=== PATIENT | female | born 1930 | race Caucasian/White ===

== ENCOUNTER 2017-08-25 23:26 | Observation (INO) | payer OTHER ==
[~2017-08-25] VITALS: Ht 162.6 cm; Wt 77.2 kg
[~2017-08-25 23:26] MED LIST: ALBU90OI6 INH; ALBU90OI61; ALBU90OI61 INH; ALIS150T PO; ALLO300; ASPI81EC PO; ATOR40TA; AZOR PO; CARV3.125 PO; CARV6.25; CARV6.25 PO; CHOL10002; CLON.1 PO; CLON.2 PO; CYAN100 PO; CYAN500 PO; FENO145 PO; FLUSAL1005; FLUSAL1005 IH; FLUSAL2505 IH; HYDACE5325 PO; Humalog100 UNIT/1 SC; INSLI75/25 SC; INSLIS75I SUBQ; INSULANI SC; INSULANPEN SC; LEVSOD25 PO; LEVSOD50 PO; MAG 64 PO; MAGCHL64ER PO; NAC600 MG PO; OLME20-12. PO; OMEG1CAP30 PO; OMEP20ER PO; Omeprazole20 M1 PO; Percocet 5-3251 EACH PO; ROSU10TA PO; WARF2 PO; WARF5 PO; WARF6 PO; Zanaflex2 M1 PO
[2017-08-26 01:29] LABS: BASOPHILS ABSOLUTE AUTO 0.03 K/mm3 (0.00-0.23); BASOPHILS PERCENT AUTO 0 % (0-2); EOSINOPHILS ABSOLUTE AUTO 0.54 K/mm3 (0.00-0.68); EOSINOPHILS PERCENT AUTO 6 % (0-6); Hematocrit 33.7 % (33.0-51.0); Hemoglobin 11.1 g/dL (11.5-16.0); IMMATURE GRAN ABSOLUTE AUTO 0.06 K/mm3 (0.00-0.10); IMMATURE GRAN PERCENT AUTO 1 % (0-1); LYMPHOCYTES ABSOLUTE AUTO 2.32 K/mm3 (0.84-5.20); LYMPHOCYTES PERCENT AUTO 24 % (21-46); MONOCYTES ABSOLUTE AUTO 1.23 K/mm3 (0.16-1.47); MONOCYTES PERCENT AUTO 13 % (4-13); Mean Corpuscular HGB 30.6 pg (26.0-34.0); Mean Corpuscular HGB Conc 32.9 g/dL (31.5-36.5); Mean Corpuscular Volume 93 fL (80-100); Mean Platelet Volume 11.7 fL (9.1-12.4); NEUTROPHILS ABSOLUTE AUTO 5.52 K/mm3 (1.96-9.15); NEUTROPHILS PERCENT AUTO 57 % (41-73); Platelet Count 203 K/mm3 (150-400); RDW Coefficient Variation 12.8 % (11.7-14.2); RDW Standard Deviation 43.6 fL (35.1-46.3); Red Blood Cell Count 3.63 M/mm3 (3.80-5.20)
[2017-08-26 01:36] LABS: International Normalized Ratio 2.47; Prothrombin Time Results 26.4 Sec (9.7-11.5)
[2017-08-26 01:41] LABS: Albumin, Blood 3.3 g/dL (3.4-5.0); Albumin/Globulin Ratio 0.8 (0.8-1.8); Bilirubin, Total 0.3 mg/dL (0.1-1.0); Bun/Creatinine Ratio 21.6 (12.0-20.0); Calcium, Blood 8.7 mg/dL (8.5-10.1); Creatinine, Blood 1.67 mg/dL (0.40-1.00); Globulin, Blood 4.1 g/dL (2.2-4.0); Potassium, Blood 3.9 mmol/L (3.5-5.5); Total Protein, Blood 7.4 g/dL (6.4-8.2)
[2017-08-26] MEDS ORDERED: CLON.1 PO ×2 (03:09→03:10)
[2017-08-26] MEDS ORDERED: Advair Hfa 230-12 GM INH (03:14)
[2017-08-26] MEDS ORDERED: ATOR20 PO (03:19)
[2017-08-26] MEDS ORDERED: ISODIN20 PO (03:21)
[2017-08-26] MEDS ORDERED: AMLO5 PO (03:22)
[2017-08-26] MEDS ORDERED: OLME5TAB PO (03:24)
[2017-08-26] MEDS ORDERED: WARF4 PO (03:26)
[2017-08-26] MEDS ORDERED: FURO40 PO (03:27)
[2017-08-26] MEDS ORDERED: GAVILAX17 GM PO (03:33)
== END 2017-08-26 12:39 | disposition home or self-care (01) ==
LOC: ER 23:26 → PCU 23:27
PROVIDERS: Family Medicine; Physician Assistant
DX: T38.3X1A Poisoning by insulin and oral hypoglycemic [antidiabetic] drugs, accidental (unintentional), initial encounter (principal); E11.649 Type 2 diabetes mellitus with hypoglycemia without coma; Y92.9 Unspecified place or not applicable; I10 Essential (primary) hypertension; I48.91 Unspecified atrial fibrillation; I25.10 Atherosclerotic heart disease of native coronary artery without angina pectoris; K21.9 Gastro-esophageal reflux disease without esophagitis; J45.909 Unspecified asthma, uncomplicated; M19.90 Unspecified osteoarthritis, unspecified site; Z86.73 Personal history of transient ischemic attack (TIA), and cerebral infarction without residual deficits; Z95.1 Presence of aortocoronary bypass graft; Z98.1 Arthrodesis status; Z79.4 Long term (current) use of insulin; Z79.899 Other long term (current) drug therapy; Z88.8 Allergy status to other drugs, medicaments and biological substances; Z88.1 Allergy status to other antibiotic agents
CPT/HCPCS: 80053; 82947; 83036; 85025; 85610; 93005; 93010; 96361; 96374; 99285; G0378; J7042

== ENCOUNTER 2018-02-11 09:35 | Emergency (ER) | payer OTHER ==
[~2018-02-11] VITALS: Ht 162.6 cm; Wt 74.8 kg
[~2018-02-11 09:35] MED LIST changes: +AMLO5 PO; +ATOR20 PO; +Advair Hfa 230-12 GM INH; +FURO40 PO; +GAVILAX17 GM PO; +ISODIN20 PO; +OLME5TAB PO; +WARF4 PO
[2018-02-11 10:03] LABS: BASOPHILS ABSOLUTE AUTO 0.03 K/mm3 (0.00-0.23); BASOPHILS PERCENT AUTO 0 % (0-2); EOSINOPHILS ABSOLUTE AUTO 0.45 K/mm3 (0.00-0.68); EOSINOPHILS PERCENT AUTO 5 % (0-6); Hematocrit 33.3 % (33.0-51.0); Hemoglobin 11.2 g/dL (11.5-16.0); IMMATURE GRAN ABSOLUTE AUTO 0.03 K/mm3 (0.00-0.10); IMMATURE GRAN PERCENT AUTO 0 % (0-1); LYMPHOCYTES ABSOLUTE AUTO 1.96 K/mm3 (0.84-5.20); LYMPHOCYTES PERCENT AUTO 22 % (21-46); MONOCYTES PERCENT AUTO 10 % (4-13); Mean Corpuscular HGB 30.7 pg (26.0-34.0); Mean Corpuscular HGB Conc 33.6 g/dL (31.5-36.5); Mean Corpuscular Volume 91 fL (80-100); Mean Platelet Volume 11.8 fL (9.1-12.4); NEUTROPHILS ABSOLUTE AUTO 5.67 K/mm3 (1.96-9.15); NEUTROPHILS PERCENT AUTO 63 % (41-73); Platelet Count 187 K/mm3 (150-400); RDW Coefficient Variation 12.7 % (11.7-14.2); RDW Standard Deviation 42.7 fL (35.1-46.3); Red Blood Cell Count 3.65 M/mm3 (3.80-5.20); White Blood Cell Count 9.04 K/mm3 (4.00-11.30)
[2018-02-11 10:28] LABS: Alanine Aminotransfer (ALT/SGP 26 U/L (12-78); Albumin, Blood 3.7 g/dL (3.4-5.0); Albumin/Globulin Ratio 1.1 (0.8-1.8); Alk Phos 56 U/L (50-136); Anion Gap 9 mmol/L (6-16); Aspartate Aminotrans (AST/SGOT 26 U/L (12-37); Bilirubin, Total 0.7 mg/dL (0.1-1.0); Blood Urea Nitrogen 38 mg/dL (8-24); Bun/Creatinine Ratio 22.8 (12.0-20.0); CO2, Blood 24 mmol/L (21-32); Calcium, Blood 7.4 mg/dL (8.5-10.1); Chloride, Blood 106 mmol/L (98-108); Creatinine, Blood 1.67 mg/dL (0.40-1.00); Globulin, Blood 3.5 g/dL (2.2-4.0); Glomerular Filtration Rate 31 (60-); Glucose, Blood 122 mg/dL (70-99); Potassium, Blood 4.1 mmol/L (3.5-5.5); Sodium, Blood 139 mmol/L (136-145); Total Protein, Blood 7.2 g/dL (6.4-8.2); Troponin I <0.015 ng/mL (0.000-0.040)
== END 2018-02-11 13:49 | disposition home or self-care (01) ==
LOC: ER 09:35
PROVIDERS: Emergency Medicine
DX: R07.9 Chest pain, unspecified (principal); R25.1 Tremor, unspecified; I10 Essential (primary) hypertension; E11.9 Type 2 diabetes mellitus without complications; I48.91 Unspecified atrial fibrillation; K21.9 Gastro-esophageal reflux disease without esophagitis; D64.9 Anemia, unspecified; Z86.73 Personal history of transient ischemic attack (TIA), and cerebral infarction without residual deficits; Z91.09 Other allergy status, other than to drugs and biological substances; Z88.8 Allergy status to other drugs, medicaments and biological substances; Z79.4 Long term (current) use of insulin; Z79.899 Other long term (current) drug therapy; Z79.01 Long term (current) use of anticoagulants
CPT/HCPCS: 36415; 71046; 80053; 83690; 84484; 85025; 93005; 93010; 99285-25

== ENCOUNTER → 2018-07-22 | Outpatient (CLI) | payer OTHER | END | disposition home or self-care (01) | LOC: LAB EV 11:03 | DX: E87.5 Hyperkalemia (principal) | CPT/HCPCS: 84132 ==

== ENCOUNTER → 2018-11-24 | Outpatient (CLI) | payer OTHER ==
[2018-11-24 15:58] LABS: BASOPHILS ABSOLUTE AUTO 0.03 K/mm3 (0.00-0.23); BASOPHILS PERCENT AUTO 0 % (0-2); EOSINOPHILS ABSOLUTE AUTO 0.04 K/mm3 (0.00-0.68); EOSINOPHILS PERCENT AUTO 0 % (0-6); Hematocrit 32.8 % (33.0-51.0); Hemoglobin 11.3 g/dL (11.5-16.0); IMMATURE GRAN ABSOLUTE AUTO 0.11 K/mm3 (0.00-0.10); IMMATURE GRAN PERCENT AUTO 1 % (0-1); LYMPHOCYTES ABSOLUTE AUTO 1.81 K/mm3 (0.84-5.20); LYMPHOCYTES PERCENT AUTO 14 % (21-46); MONOCYTES ABSOLUTE AUTO 1.76 K/mm3 (0.16-1.47); MONOCYTES PERCENT AUTO 14 % (4-13); Mean Corpuscular HGB 29.4 pg (26.0-34.0); Mean Corpuscular HGB Conc 34.5 g/dL (31.5-36.5); Mean Corpuscular Volume 85 fL (80-100); Mean Platelet Volume 12.6 fL (9.1-12.4); NEUTROPHILS ABSOLUTE AUTO 8.85 K/mm3 (1.96-9.15); NEUTROPHILS PERCENT AUTO 70 % (41-73); Platelet Count 276 K/mm3 (150-400); RDW Coefficient Variation 12.8 % (11.7-14.2); Red Blood Cell Count 3.85 M/mm3 (3.80-5.20)
[2018-11-24 16:14] LABS: Bun/Creatinine Ratio 27.3 (12.0-20.0); Calcium, Blood 8.5 mg/dL (8.5-10.1); Creatinine, Blood 2.67 mg/dL (0.40-1.00); Potassium, Blood 3.7 mmol/L (3.5-5.5); Uric Acid, Blood 15.7 mg/dL (2.6-6.0)
== END ==
LOC: LAB SHORT 15:46 → LAB EV 15:46
PROVIDERS: Emergency Medicine
DX: M79.675 Pain in left toe(s) (principal)
CPT/HCPCS: 80048; 84550; 85025

== ENCOUNTER 2019-03-17 12:49 | Inpatient (IN) | payer OTHER ==
[~2019-03-17] VITALS: Ht 165.1 cm; Wt 72.4 kg
[2019-03-17 13:17] LABS: BASOPHILS ABSOLUTE AUTO 0.03 K/mm3 (0.00-0.23); BASOPHILS PERCENT AUTO 0 % (0-2); EOSINOPHILS ABSOLUTE AUTO 0.01 K/mm3 (0.00-0.68); EOSINOPHILS PERCENT AUTO 0 % (0-6); Hematocrit 46.1 % (33.0-51.0); Hemoglobin 14.8 g/dL (11.5-16.0); IMMATURE GRAN ABSOLUTE AUTO 0.28 K/mm3 (0.00-0.10); IMMATURE GRAN PERCENT AUTO 1 % (0-1); LYMPHOCYTES PERCENT AUTO 4 % (21-46); MONOCYTES ABSOLUTE AUTO 1.77 K/mm3 (0.16-1.47); MONOCYTES PERCENT AUTO 7 % (4-13); Mean Corpuscular HGB 27.3 pg (26.0-34.0); Mean Corpuscular HGB Conc 32.1 g/dL (31.5-36.5); Mean Corpuscular Volume 85 fL (80-100); NEUTROPHILS ABSOLUTE AUTO 21.24 K/mm3 (1.96-9.15); NEUTROPHILS PERCENT AUTO 87 % (41-73); Platelet Count 198 K/mm3 (150-400); RDW Coefficient Variation 14.4 % (11.7-14.2); RDW Standard Deviation 43.8 fL (35.1-46.3); Red Blood Cell Count 5.42 M/mm3 (3.80-5.20); White Blood Cell Count 24.33 K/mm3 (4.00-11.30)
[2019-03-17 13:26] LABS: International Normalized Ratio 1.52; Prothrombin Time Results 15.5 Sec (9.7-11.5)
[2019-03-17 13:41] LABS: Albumin, Blood 3.1 g/dL (3.4-5.0); Albumin/Globulin Ratio 0.9 (0.8-1.8); Bilirubin, Total 1.6 mg/dL (0.1-1.0); Bun/Creatinine Ratio 33.9 (12.0-20.0); Calcium, Blood 8.4 mg/dL (8.5-10.1); Creatine Kinase MB 1.8 ng/mL (0.0-3.6); Creatine Kinase MB Index 1.1 (0.0-4.0); Creatinine, Blood 1.86 mg/dL (0.40-1.00); Globulin, Blood 3.3 g/dL (2.2-4.0); Total Protein, Blood 6.4 g/dL (6.4-8.2); Troponin I 0.085 ng/mL (0.000-0.040)
[2019-03-17 14:03] LABS: Source, Urine Catheter
[2019-03-17 14:15] LABS: Bilirubin, Urine Neg (Neg); Blood, Urine 3+ (Neg); Glucose Qualitative, Urine 4+ (Neg); Ketones, Urine 1+ (Neg); Leukocyte Esterase, Urine 3+ (Neg); Nitrite, Urine Neg (Neg); Protein, Urine 4+ (Neg); Specific Gravity, Urine 1.015 (1.003-1.022); Urobilinogen, Urine NORM (Normal)
[2019-03-17 14:22] LABS: Appearance, Urine Hazy (Clear); Color, Urine Yellow (P-Yellow)
[2019-03-17 14:23] LABS: Bacteria Many /hpf; Squamous Epithelial Cells Few /hpf (Few); White Blood Cells, Urine TNTC /hpf (0-5)
--- NOTE | 2019-03-17 16:31 | NUR ---
PT ARRIVAL PT ARRIVED ON UNIT VIA GURNEY. PT WAS ADMITTED FOR ACUTE CVA. PT IS NONVERBAL AT THIS TIME AND RIGHT SIDE IS FLACCID. PT IS ABLE TO OPEN EYES TO VERBAL STIMULI BUT UNABLE TO TRACK OR FOLLOW DIRECTIONS. PT HAS LEFT FACIAL DROOP NOTED, PT'S LEFT PUPIL IS PINPOINT AND FIXED, RIGHT PUPILE IS PIN POINT WITH BRISK RESPONSE TO LIGHT. PT ARRIVED ON LABATOLOL GTT RUNNING AT 0.5 MG/HR, PT'S VS STABLE AT THIS TIME (SEE VS CHARTING). ROPER IN PLACE, DRAINING CLOUDY, MUCOUSY, FOUL SMELLING URINE TO GRAVITY. WILL CONTINUE TO MONITOR.
--- NOTE | 2019-03-17 18:50 | NUR ---
SHIFT SUMMARY. NO ACUTE CHANGES NOTED THIS SHIFT. PT IS STILL ON THE LABATOLOL GTT. PT IS IN AFIB IN THE 80'S PER ACCOUNTS RECEIVABLE COORDINATOR. PT'S SBP IS IN THE 150'S. PER PROVIDER HE WANTS TO KEEP SBP BELOW 180 AND ABOVE 120. PT HAS CLONIDINE PATCH TO LEFT UPPER ARM. PT'S SON AND DAUGHTER IN LAW ARE DRIVING FROM [place] IN THE AM. THIS IS THE PT'S ONLY FAMILY. PT'S NEIGHBORS CAME IN TO VISIT PT ONCE SHE WAS ADMITTED. CALL LIGHT IN REACH, BED IS LOCKED AND LOW WILL CONTINUE TO MONITOR UNTIL REPORT IS GIVEN TO ONCOMING RN.
[2019-03-18 04:09] LABS: BASOPHILS ABSOLUTE AUTO 0.03 K/mm3 (0.00-0.23); BASOPHILS PERCENT AUTO 0 % (0-2); EOSINOPHILS PERCENT AUTO 0 % (0-6); Hematocrit 41.1 % (33.0-51.0); IMMATURE GRAN ABSOLUTE AUTO 0.18 K/mm3 (0.00-0.10); IMMATURE GRAN PERCENT AUTO 1 % (0-1); LYMPHOCYTES PERCENT AUTO 4 % (21-46); MONOCYTES ABSOLUTE AUTO 1.96 K/mm3 (0.16-1.47); MONOCYTES PERCENT AUTO 9 % (4-13); Mean Corpuscular HGB 27.1 pg (26.0-34.0); Mean Corpuscular HGB Conc 31.6 g/dL (31.5-36.5); Mean Corpuscular Volume 86 fL (80-100); Mean Platelet Volume 12.6 fL (9.1-12.4); NEUTROPHILS ABSOLUTE AUTO 19.23 K/mm3 (1.96-9.15); NEUTROPHILS PERCENT AUTO 87 % (41-73); Platelet Count 162 K/mm3 (150-400); RDW Coefficient Variation 14.5 % (11.7-14.2); RDW Standard Deviation 45.2 fL (35.1-46.3)
[2019-03-18 04:30] LABS: Albumin, Blood 2.3 g/dL (3.4-5.0); Albumin/Globulin Ratio 0.8 (0.8-1.8); Bilirubin, Total 0.8 mg/dL (0.1-1.0); Bun/Creatinine Ratio 32.7 (12.0-20.0); Calcium, Blood 7.4 mg/dL (8.5-10.1); Creatinine, Blood 2.08 mg/dL (0.40-1.00); Globulin, Blood 2.9 g/dL (2.2-4.0); Potassium, Blood 4.3 mmol/L (3.5-5.5); Total Protein, Blood 5.2 g/dL (6.4-8.2); Troponin I 0.18 ng/mL (0.000-0.040)
--- NOTE | 2019-03-18 06:33 | NUR ---
ASSUMED CARE APPROXIMATELY 1900 FROM HIPOLITO IBANEZ; PT IS NONVERBAL AT PRESENT, HOWEVER PROGRESSIVELY BECAME MORE RESPONSIVE THROUGH THE NIGHT; PT OPENS EYES AND ATTEMPTS TO NOD HER HEAD, OCCASIONALY MOANS; RIGHT SIDED PARALYSIS; SLIGHT LEFT HAND FLARER; AND AT TIMES MOVED GREAT TOE ON LEFT SIDE; PT IS ON RA W/ O2 SATS IN THE 90'S; V/S STABLE W/ SYSTOLIC RANGING FROM 120'S TO 140'S; PROVIDED CALLED 03/17/19 @2004 AND WAS UPDATED ON PT CONDITION; ORDERS GIVEN TO ADMINISTER 20 UNITS OF INSULIN AND SLIDING SCALE CHANGED TO MED. PT'S SON AND [id number] PHONED FOR UPDATE AND STATED THEY WOULD BE DRIVING DOWN TO SEE HER; PT HAD HEAD CT AT 0600; BED IN LOWEST POSITION; BED ALARM ON; WILL CONTINUE TO MONITOR AND ASSESS UNTIL HANDOFF TO DAY SHIFT RN.
--- NOTE | 2019-03-18 07:38 | NUR ---
AM NOTE. ASSUMED CARE OF PT APROX 0700, PT WAS ADMITTED FOR ACUTE CVA. PT APPEARS MORE ALERT THAN YESTERDAY, PT IS ABLE TO OPEN HER EYES TO VERBAL STIMULI. PT WAS ABLE TO TRACK AND FOLLOW WITH HER EYES THIS MORNING. PT HAS BEEN ATTEMPTING TO SPEAK BUT WORDS ARE NONSENSICAL AT THIS TIME. PT ATTEMPTS TO HELP COVER HERSELF WITH HER LEFT ARM WHEN BLANKETS ARE REMOVED FOR CARE. PT HAS VERY MINIMAL MOVMENT WITH THE LEFT LEG. PT'S VS STABLE AT THIS TIME. PT IS STILL ON LABATALOL GTT AT 0.5MG/HR. L/S CLEAR IN THE UPPER LOBES AND COARSE CRACKLES NOTED IN THE LLL. PT IS ON RA WITH O2 SATS >92%. EDEMA IS STILL PRESENT TO THE PT'S R ARM AND HAND. ROPER IS PATENT AND DRAINING CLOUDY, YELLOW, MILKY URINE TO GRAVITY. PT HAD SMALL SMEAR OF BM THIS AM. CALL LIGHT IN REACH, WILL CONTINUE TO MONITOR.
--- NOTE | 2019-03-18 11:30 | NUR ---
PT UPDATE... AT 1053 PT HAD WITNESSED SEIZURE THAT LASTED 1 MINUTE AND 5 SECONDS. THIS RN WAS PROVIDING CARE AND ASSESSING PT'S NEURO FUNCTION WHEN PT STARTING SEIZING. PRIOR TO SEIZURE PT WAS ABLE TO OPEN HER EYES, AND SQUEEZE THIS RN'S HAND PROPERLY IN RESPONSE TO SIMPLE YES NO QUESTIONS. PROVIDER WAS CALLED AND NOTIFIED OF EVENT AND ORDERS OBTAINED. WILL CONTINUE TO MONITOR.
--- NOTE | 2019-03-18 15:35 | NUR ---
PT UPDATE.... PT'S SON FROM OUT OF STATE. PT WOKE UP AND STARTED SMILING AT HER SON AND DAUGHTER IN LAW, PT WAS ABLE TO SQUEEZE HER SON'S HAND. PT'S VS STABLE AT 140/62 WITH HR OF 108 IN AFIB. LABATALOL HAS BEEN OFF SINCE 1130. PT HAS BEEN TURNED Q 2 HOURS, CATH CARE/DILEEP CARE PROVIDED. PALLIATVE CARE CONSULT WAS PLACED. WILL CONTINUE TO MONITOR
--- NOTE | 2019-03-18 18:13 | NUR ---
Clinical Visit: Called to room by nurse. Tiffani reports that family is having questions regarding comfort care and hospice. Reviewed each of these with son and daughter in law at bedside. Questions answered. Pt appears very comfortable. She has had some ativan for seizure. Will follow up with family and pt tomorrow. They are planning on staying in [place] until Friday to hopefully have things in place for pt. Will need placement.
--- NOTE | 2019-03-19 02:37 | NUR ---
ASSUMED CARE APPROXIMATELY 1900 FROM MARCELLE RN; FAMILY AT BEDSIDE AT BEGINING OF SHIFT; PT IS ATTEMPTING TO FOLLOW VERBAL COMMANDS, HOWEVER VERY LIMITED; Q2 HR TURNS PROVIDED; CATH CARE AND ORAL CARE PROVIDED; PT ANSWERED YES/NO QUESTIONS AND OPENED MOUTH DIRECTED; SCD'S IN PLACE; PT DENIES PAIN AT THIS TIME; PT SLEPT MUCH OF THE NIGHT IN BETWEEN INTERVENTIONS; CALL LIGHT W/IN REACH, BED IN LOWEST POSITION; BED ALARM ON; WILL CONTINUE TO MONITOR AND ASSESS UNTIL HANDOFF TO DAY SHIFT RN.
[2019-03-19 04:05] LABS: BASOPHILS ABSOLUTE AUTO 0.01 K/mm3 (0.00-0.23); BASOPHILS PERCENT AUTO 0 % (0-2); EOSINOPHILS PERCENT AUTO 0 % (0-6); Hematocrit 41.7 % (33.0-51.0); Hemoglobin 13.1 g/dL (11.5-16.0); IMMATURE GRAN ABSOLUTE AUTO 0.12 K/mm3 (0.00-0.10); IMMATURE GRAN PERCENT AUTO 1 % (0-1); LYMPHOCYTES ABSOLUTE AUTO 0.53 K/mm3 (0.84-5.20); LYMPHOCYTES PERCENT AUTO 3 % (21-46); MONOCYTES ABSOLUTE AUTO 0.86 K/mm3 (0.16-1.47); MONOCYTES PERCENT AUTO 5 % (4-13); Mean Corpuscular HGB 27.1 pg (26.0-34.0); Mean Corpuscular HGB Conc 31.4 g/dL (31.5-36.5); Mean Corpuscular Volume 86 fL (80-100); Mean Platelet Volume 11.6 fL (9.1-12.4); NEUTROPHILS ABSOLUTE AUTO 14.36 K/mm3 (1.96-9.15); NEUTROPHILS PERCENT AUTO 90 % (41-73); Platelet Count 129 K/mm3 (150-400); RDW Coefficient Variation 14.6 % (11.7-14.2); Red Blood Cell Count 4.83 M/mm3 (3.80-5.20); White Blood Cell Count 15.88 K/mm3 (4.00-11.30)
[2019-03-19 04:22] LABS: Albumin, Blood 2.2 g/dL (3.4-5.0); Anion Gap 10 mmol/L (6-16); Blood Urea Nitrogen 67 mg/dL (8-24); Bun/Creatinine Ratio 36.4 (12.0-20.0); CO2, Blood 22 mmol/L (21-32); Calcium, Blood 6.9 mg/dL (8.5-10.1); Chloride, Blood 112 mmol/L (98-108); Creatinine, Blood 1.84 mg/dL (0.40-1.00); Glomerular Filtration Rate 27 (60-); Glucose, Blood 203 mg/dL (70-99); Phosphorus, Blood 3.9 mg/dL (2.5-4.9); Sodium, Blood 144 mmol/L (136-145)
--- NOTE | 2019-03-19 07:51 | NUR ---
AM NOTE. ASSUMED CARE OF PT APROX 0700. PT IS A&Ox4 AND ON BEDREST. PT IS ABLE TO RESPOND TO SIMPLE QUESTIONS, PT WAS UNABLE TO STATE HER BIRTHDAY, THE DATE/YEAR, OR WHO THE PRESIDENT WAS. PT STATED SHE REMEMBERED HER SON AND DAUGHTER IN LAW WAS HERE. PT WAS ABLE TO LIFT HER LEFT LEG AND HER RIGHT LEG ON COMMAND, PT WAS ABLE TO LIFT HER LEFT ARM AND EMBLEM DRAWER IN HER FINGERS, PT WAS UNABLE TO MOVE RIGHT ARM/HAND. PT WAS ABLE TO SIT UP IN THE BED AND LEAN FORWARD WITH HELP FROM THIS RN. PUPILS ARE SMALL AT 2MM AND RESPONSIVE TO LIGHT. PT WAS ABLE TO SMILE WHEN ASKED, WHEN PT WAS ASKED TO STICK OUT HER TONGUE PT SMILED INSTEAD. PT IS IN AFIB IN THE 70'S-80'S. RIGHT HAND/ARM STILL HAS SOME NONPITTING EDEMA AND IS ELEVATED ON PILLOWS. L/S DIM AND CLEAR T/O EXCEPT IN THE LLL WHERE SLIGHT COARSENESS IS HEARD. PT IS ON RA WITH O2 SATS >92%, BT PRESENT AND HYPOACTIVE, ABD IS SOFT AND NONTENDER TO PALP. PT IS NPO AND REQUEST FOR SPEECH THERAPIST WILL BE PLACED. CALL LIGHT IN REACH, BED IS LOCKED AND LOW WILL CONTINUE TO MONITOR.
--- NOTE | 2019-03-19 18:40 | NUR ---
SHIFT SUMMARY. NO ACUTE NEGATIVE CHANGES NOTED THIS SHIFT. PT IS ABLE TO TALK AND RESPOND TO SIMPLE QUESTIONS. PT IS ABLE TO MOVE HER RIGHT LEG AND SLIGHTLY MOVE HER RIGHT ARM. BEDSIDE SWALLOW STUDY WAS DONE BY THIS RN, PT DID NOT SHOW SIGNS/SYMPTOMS OF ASPIRATION. PT AND FAMILY EDUCATED ON SWALLOW PRECAUTIONS. PT'S VS HAVE BEEN STABLE. PT DENIES ANY CHEST PAIN/PRESSURE, N/V/D OR HEADACHE. CALL LIGHT IN REACH, BED IS LOCKED AND LOW WILL CONTINUE TO MONITOR UNTIL REPORT IS GIVEN TO ONCOMING RN.
--- NOTE | 2019-03-20 05:49 | NUR ---
PT HAD NO ACUTE CHANGES T/O NIGHT; VSS. PT IS ALERT, COOPERATIVE, NO CHANGES IN NEURO STATUS. SPEECH CLEAR, SLURRED AT TIMES. PT DOES HAVE OCC WORD SALAD AND DIFFICULTY FINDING WORDING. PT SWALLOWING W/O DIFFICULTY, HOB ELEVATED. JACQUELIN PRIETO, IVF CONT PER ORDERS. PT REPOSITIONED FREQ T/O NIGHT. WILL CONT TO MONITOR UNTIL REP GIVEN TO ONCOMING RN.
[2019-03-20 11:36] LABS: International Normalized Ratio 2.12
--- NOTE | 2019-03-20 14:08 | NUR ---
ASSUMED CARE REPORT FROM HIPOLITO FRANCOIS. PATIENT IN BED WITH HEAD AT 45 DEGREE ANGLE. FAMILY AT BEDSIDE. DENIES PAIN AT THIS TIME. NS 75 ML/HR
--- NOTE | 2019-03-20 15:00 | NUR ---
ASSUMED CARE OF PATIENT. REPORT RECIEVED FROM JOSIANE MCMILLAN. PT IS RESTING COMFORTABLY IN BED VISITNG WITH HER SON AND DAUGHTER-IN -LAW. PATIENT HAS COMPLETED AN ADVANCED DIRECTIVE, COPY MADE AND PLACED IN THE CHART. SON AND [id number] STATED THEY TOURED THE CUSTODIAL FACILITIES TODAY AND THEY WOULD PREFER THE PATIENT GO TO [facility], I REASSURED THE FAMILY I WOULD PASS ALONG THE MESSAGE SO CARE MANAGEMENT KNOWS. PT AND FMAIY DENY FURTHER NEEDS. CALL LIGHT IN REACH. WILL CONTINUE TO MONITOR.
--- NOTE | 2019-03-20 17:30 | NUR ---
PO MEDS GIVEN. PT IS ABLE TO EAT DINNER WITHOUT ASSISTANCE. VSS. PT AND FAMILY DENY OTHER NEEDS AT THIS TIME. CALL LIGHT IN REACH, WILL CONTINUE TO MONITOR.
--- NOTE | 2019-03-20 20:24 | NUR ---
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
[2019-03-21 04:01] LABS: BASOPHILS ABSOLUTE AUTO 0.01 K/mm3 (0.00-0.23); BASOPHILS PERCENT AUTO 0 % (0-2); EOSINOPHILS PERCENT AUTO 0 % (0-6); Hematocrit 43.5 % (33.0-51.0); Hemoglobin 13.8 g/dL (11.5-16.0); IMMATURE GRAN ABSOLUTE AUTO 0.11 K/mm3 (0.00-0.10); IMMATURE GRAN PERCENT AUTO 1 % (0-1); LYMPHOCYTES ABSOLUTE AUTO 0.74 K/mm3 (0.84-5.20); LYMPHOCYTES PERCENT AUTO 5 % (21-46); MONOCYTES ABSOLUTE AUTO 0.86 K/mm3 (0.16-1.47); MONOCYTES PERCENT AUTO 6 % (4-13); Mean Corpuscular HGB 27.4 pg (26.0-34.0); Mean Corpuscular HGB Conc 31.7 g/dL (31.5-36.5); Mean Corpuscular Volume 87 fL (80-100); Mean Platelet Volume 12.1 fL (9.1-12.4); NEUTROPHILS ABSOLUTE AUTO 13.46 K/mm3 (1.96-9.15); NEUTROPHILS PERCENT AUTO 89 % (41-73); Platelet Count 149 K/mm3 (150-400); RDW Coefficient Variation 14.6 % (11.7-14.2); RDW Standard Deviation 46.4 fL (35.1-46.3); Red Blood Cell Count 5.03 M/mm3 (3.80-5.20); White Blood Cell Count 15.18 K/mm3 (4.00-11.30)
[2019-03-21 04:15] LABS: International Normalized Ratio 2.32; Prothrombin Time Results 22.8 Sec (9.7-11.5)
[2019-03-21 04:21] LABS: Calcium, Blood 6.5 mg/dL (8.5-10.1); Creatinine, Blood 1.54 mg/dL (0.40-1.00); Potassium, Blood 4.4 mmol/L (3.5-5.5)
--- NOTE | 2019-03-21 06:11 | NUR ---
SHIFT SUMMARY: PATIENT UP TO BSC WITH MAX ASSIST AT BEGINNING OF SHIFT, X1 BM. ABRASION ON COCCYX AND NEAR RECTUM. S.S. CONSULT ORDERED-PATIENT FAMILY WOULD LIKE FOR HER TO GO TO [facility] FOR REHAB. PATIENT VSS, CALL LIGHT WITHIN REACH, BED LOW AND LOCKED WITH EXIT ALARM ON.
--- NOTE | 2019-03-21 18:03 | NUR ---
SHIFT SUMMARY PT RESTING IN BED THE MAJORITY OF THE DAY. UP IN CHAIR FOR SEVERAL HOURS THIS AM. PT UP TO BEDSIDE COMMODE, BM X1. ALERT AND ORIENTED TO SELF, PLACE, AND FAMILY. PT FOLLOWING COMMANDS APPROPRIATELY AT TIMES, PT NOT ALWAYS ABLE TO FOLLOW COMMANDS. PT NOTED TO HAVE RECEPTIVE AND EXPRESSIVE APHASIA. RIGHT ARM WEAKNESS NOTED, BUT ABLE TO MOVE ARM INDEPENDENTLY AT TIMES. RIGHT LEG WEAKER THAN LEFT LEG, BUT PT TRANSFERED FROM COMMODE BACK TO BED WITH 1 PERSON ASSIST AND GAIT BELT. DENIES PAIN THROUGHOUT THE DAY. LUNG SOUNDS CLEAR, DIMINISHED BASES. AFIB RATE 60s-70s. FAMILY AT BEDSIDE THROUGHOUT THE DAY.
[2019-03-22 03:58] LABS: BASOPHILS ABSOLUTE AUTO 0.01 K/mm3 (0.00-0.23); BASOPHILS PERCENT AUTO 0 % (0-2); EOSINOPHILS ABSOLUTE AUTO 0.04 K/mm3 (0.00-0.68); EOSINOPHILS PERCENT AUTO 0 % (0-6); Hematocrit 43.9 % (33.0-51.0); Hemoglobin 13.9 g/dL (11.5-16.0); IMMATURE GRAN PERCENT AUTO 1 % (0-1); LYMPHOCYTES ABSOLUTE AUTO 0.97 K/mm3 (0.84-5.20); LYMPHOCYTES PERCENT AUTO 7 % (21-46); MONOCYTES ABSOLUTE AUTO 0.73 K/mm3 (0.16-1.47); MONOCYTES PERCENT AUTO 5 % (4-13); Mean Corpuscular HGB 26.7 pg (26.0-34.0); Mean Corpuscular HGB Conc 31.7 g/dL (31.5-36.5); Mean Platelet Volume 12.3 fL (9.1-12.4); NEUTROPHILS ABSOLUTE AUTO 11.74 K/mm3 (1.96-9.15); NEUTROPHILS PERCENT AUTO 86 % (41-73); Platelet Count 102 K/mm3 (150-400); RDW Coefficient Variation 14.6 % (11.7-14.2); RDW Standard Deviation 44.5 fL (35.1-46.3); White Blood Cell Count 13.59 K/mm3 (4.00-11.30)
[2019-03-22 04:03] LABS: International Normalized Ratio 2.24; Prothrombin Time Results 22.1 Sec (9.7-11.5)
[2019-03-22 04:04] LABS: Bun/Creatinine Ratio 38.7 (12.0-20.0); Calcium, Blood 6.3 mg/dL (8.5-10.1); Creatinine, Blood 1.24 mg/dL (0.40-1.00)
[2019-03-22 04:08] LABS: Mean Corpuscular Volume 84 fL (80-100)
--- NOTE | 2019-03-22 06:29 | NUR ---
SHIFT SUMMARY PT A&O TO SELF AND PLACE, FOLLOWING INSTRUCTIONS. PT W/ R-SIDED DEFICIT, ABLE TO LIFT R ARM AND HELP W/ REPOSITIONING IN BED. MONITOR SHOWS AFIB, HR 60-80. BP ELEVATED, OTHERWISE VSS. SPO2 > 92% ON RA. ROPER CATH CONTINUES TO DRAIN CLOUDY YELLOW URINE. PT SLEEPING MAJORITY OF SHIFT. WILL CONTINUE TO MONITOR AND PROVIDE CARE UNTIL REPORT OFF TO DAY SHIFT RN.
--- NOTE | 2019-03-22 15:41 | NUR ---
DISCHARGE NOTE PT STABLE FOR DISCHARGE TO [facility]. IV REMOVED. DISCHARGE INSTRUCTIONS SENT WITH PT TO FACILITY. REPORT CALLED TO NURSE AT [facility]. PT DISCHARGED VIA WHEELCHAIR VIA TRANSPORT.
[2019-03-22] MEDS ORDERED: Aspir 8181 MG PO (16:38)
== END 2019-03-22 15:44 | DRG 65 ==
LOC: ER 12:49 → PCU 14:46
PROVIDERS: Emergency Medicine; Internal Medicine Endocrinology, Diabetes & Metabolism; Pharmacist; ADMIT Family Medicine
DX: I63.512 Cerebral infarction due to unspecified occlusion or stenosis of left middle cerebral artery (principal); N18.4 Chronic kidney disease, stage 4 (severe); G81.91 Hemiplegia, unspecified affecting right dominant side; N39.0 Urinary tract infection, site not specified; Z79.01 Long term (current) use of anticoagulants; Z79.4 Long term (current) use of insulin; Z86.73 Personal history of transient ischemic attack (TIA), and cerebral infarction without residual deficits; I48.2 Chronic atrial fibrillation; K21.9 Gastro-esophageal reflux disease without esophagitis; I25.10 Atherosclerotic heart disease of native coronary artery without angina pectoris; Z95.1 Presence of aortocoronary bypass graft; E11.40 Type 2 diabetes mellitus with diabetic neuropathy, unspecified; E78.5 Hyperlipidemia, unspecified; E03.9 Hypothyroidism, unspecified; E11.22 Type 2 diabetes mellitus with diabetic chronic kidney disease; I12.9 Hypertensive chronic kidney disease with stage 1 through stage 4 chronic kidney disease, or unspecified chronic kidney disease; M81.0 Age-related osteoporosis without current pathological fracture; J44.9 Chronic obstructive pulmonary disease, unspecified; R47.01 Aphasia; B96.20 Unspecified Escherichia coli [E. coli] as the cause of diseases classified elsewhere; E11.65 Type 2 diabetes mellitus with hyperglycemia; I65.23 Occlusion and stenosis of bilateral carotid arteries; I27.20 Pulmonary hypertension, unspecified; I07.1 Rheumatic tricuspid insufficiency
CPT/HCPCS: 36415; 51702; 70450; 80048; 80053; 80069; 81001; 82550; 82553; 82947; 83880; 84484; 85025; 85610; 85730; 87077; 87086; 87186; 92610; 93005; 93010; 93880; 96361-59; 96365-59; 96376-59; 97110; 97112; 97116; 97162; 97167; 97530; 99285-25; C9113; J0696; J1650; J1815; J2060; J7030; J7060; Q3014

== ENCOUNTER 2019-04-16 09:44 | Emergency (ER) | payer OTHER ==
[~2019-04-16] VITALS: Ht 162.6 cm; Wt 83.9 kg
[~2019-04-16 09:44] MED LIST changes: +Aspir 8181 MG PO
[2019-04-16] MEDS ORDERED: INSULANPEN SC (10:01)
[2019-04-16] MEDS ORDERED: Humalog100 UNIT/1 SC (10:02)
[2019-04-16] MEDS ORDERED: OMEPRAZOLE20 MG PO (10:03)
[2019-04-16] MEDS ORDERED: Isosorbide Mono30 MG PO (10:03)
[2019-04-16] MEDS ORDERED: ASPI81CH PO (10:03)
[2019-04-16] MEDS ORDERED: ATOR20 PO (10:03)
[2019-04-16] MEDS ORDERED: Oyster Shell C500 MG (10:04)
[2019-04-16] MEDS ORDERED: Magnesium27 MG (10:04)
[2019-04-16] MEDS ORDERED: Synthroid50 MCG PO (10:05)
[2019-04-16] MEDS ORDERED: CYAN500 PO (10:05)
[2019-04-16] MEDS ORDERED: Coumadin4 MG PO (10:06)
[2019-04-16 10:07] LABS: BASOPHILS ABSOLUTE AUTO 0.03 K/mm3 (0.00-0.23); BASOPHILS PERCENT AUTO 0 % (0-2); EOSINOPHILS ABSOLUTE AUTO 0.21 K/mm3 (0.00-0.68); EOSINOPHILS PERCENT AUTO 2 % (0-6); Hematocrit 34.9 % (33.0-51.0); Hemoglobin 10.9 g/dL (11.5-16.0); IMMATURE GRAN ABSOLUTE AUTO 0.07 K/mm3 (0.00-0.10); IMMATURE GRAN PERCENT AUTO 1 % (0-1); LYMPHOCYTES ABSOLUTE AUTO 0.97 K/mm3 (0.84-5.20); LYMPHOCYTES PERCENT AUTO 8 % (21-46); MONOCYTES ABSOLUTE AUTO 1.02 K/mm3 (0.16-1.47); MONOCYTES PERCENT AUTO 9 % (4-13); Mean Corpuscular HGB Conc 31.2 g/dL (31.5-36.5); Mean Corpuscular Volume 87 fL (80-100); Mean Platelet Volume 11.7 fL (9.1-12.4); NEUTROPHILS ABSOLUTE AUTO 9.28 K/mm3 (1.96-9.15); NEUTROPHILS PERCENT AUTO 80 % (41-73); Platelet Count 201 K/mm3 (150-400); RDW Coefficient Variation 16.3 % (11.7-14.2); RDW Standard Deviation 50.8 fL (35.1-46.3); Red Blood Cell Count 4.03 M/mm3 (3.80-5.20); White Blood Cell Count 11.58 K/mm3 (4.00-11.30)
[2019-04-16] MEDS ORDERED: OLME5TAB PO (10:07)
[2019-04-16] MEDS ORDERED: WARF6 PO (10:07)
[2019-04-16] MEDS ORDERED: CARV6.25 PO (10:07)
[2019-04-16] MEDS ORDERED: Catapres0.2 MG PO (10:08)
[2019-04-16 10:29] LABS: Albumin/Globulin Ratio 0.7 (0.8-1.8); Bilirubin, Total 0.5 mg/dL (0.1-1.0); Calcium, Blood 7.1 mg/dL (8.5-10.1); Creatinine, Blood 1.35 mg/dL (0.40-1.00); Globulin, Blood 2.9 g/dL (2.2-4.0); Potassium, Blood 4.4 mmol/L (3.5-5.5); Total Protein, Blood 4.9 g/dL (6.4-8.2); Troponin I 0.03 ng/mL (0.000-0.040)
[2019-04-16] MEDS ORDERED: Ultram50 MG PO (10:51)
== END 2019-04-16 12:01 | disposition home or self-care (01) ==
LOC: ER 09:44
PROVIDERS: Emergency Medicine
DX: M25.512 Pain in left shoulder (principal); Z88.1 Allergy status to other antibiotic agents; Z88.8 Allergy status to other drugs, medicaments and biological substances; Z79.4 Long term (current) use of insulin; Z79.82 Long term (current) use of aspirin; Z79.899 Other long term (current) drug therapy; Z79.01 Long term (current) use of anticoagulants; I10 Essential (primary) hypertension; E11.9 Type 2 diabetes mellitus without complications; Z86.73 Personal history of transient ischemic attack (TIA), and cerebral infarction without residual deficits; I48.91 Unspecified atrial fibrillation; K21.9 Gastro-esophageal reflux disease without esophagitis; I25.10 Atherosclerotic heart disease of native coronary artery without angina pectoris
CPT/HCPCS: 71046; 80053; 84484; 85025; 93005; 93010; 99285-25

== ENCOUNTER → 2019-04-28 | Outpatient (CLI) | payer OTHER ==
[~2019-04-28] MED LIST changes: +ASPI81CH PO; +Catapres0.2 MG PO; +Coumadin4 MG PO; +Isosorbide Mono30 MG PO; +Magnesium27 MG; +OMEPRAZOLE20 MG PO; +Oyster Shell C500 MG; +Synthroid50 MCG PO; +Ultram50 MG PO
[2019-04-28 14:18] LABS: BASOPHILS ABSOLUTE AUTO 0.03 K/mm3 (0.00-0.23); BASOPHILS PERCENT AUTO 0 % (0-2); EOSINOPHILS ABSOLUTE AUTO 0.01 K/mm3 (0.00-0.68); EOSINOPHILS PERCENT AUTO 0 % (0-6); Hematocrit 30.7 % (33.0-51.0); Hemoglobin 9.9 g/dL (11.5-16.0); IMMATURE GRAN ABSOLUTE AUTO 0.09 K/mm3 (0.00-0.10); IMMATURE GRAN PERCENT AUTO 1 % (0-1); LYMPHOCYTES PERCENT AUTO 8 % (21-46); MONOCYTES ABSOLUTE AUTO 1.64 K/mm3 (0.16-1.47); MONOCYTES PERCENT AUTO 11 % (4-13); Mean Corpuscular HGB 27.5 pg (26.0-34.0); Mean Corpuscular HGB Conc 32.2 g/dL (31.5-36.5); Mean Corpuscular Volume 85 fL (80-100); Mean Platelet Volume 11.2 fL (9.1-12.4); NEUTROPHILS ABSOLUTE AUTO 12.31 K/mm3 (1.96-9.15); NEUTROPHILS PERCENT AUTO 81 % (41-73); Platelet Count 253 K/mm3 (150-400); RDW Standard Deviation 52.3 fL (35.1-46.3); White Blood Cell Count 15.28 K/mm3 (4.00-11.30)
[2019-04-28 14:28] LABS: Albumin, Blood 1.8 g/dL (3.4-5.0); Albumin/Globulin Ratio 0.5 (0.8-1.8); Bilirubin, Total 0.8 mg/dL (0.1-1.0); Bun/Creatinine Ratio 16.7 (12.0-20.0); Calcium, Blood 6.4 mg/dL (8.5-10.1); Creatinine, Blood 1.92 mg/dL (0.40-1.00); Globulin, Blood 3.8 g/dL (2.2-4.0); Potassium, Blood 3.7 mmol/L (3.5-5.5); Total Protein, Blood 5.6 g/dL (6.4-8.2); Uric Acid, Blood 9.4 mg/dL (2.6-6.0)
[2019-04-28 16:09] LABS: International Normalized Ratio 1.26; Prothrombin Time Results 13.1 Sec (9.7-11.5)
== END | disposition home or self-care (01) ==
LOC: LAB SHORT 14:13 → LAB EV 14:13
PROVIDERS: Physician Assistant
DX: Z79.01 Long term (current) use of anticoagulants (principal); Z51.81 Encounter for therapeutic drug level monitoring; M79.605 Pain in left leg
CPT/HCPCS: 80053; 84550; 85025; 85610

== ENCOUNTER 2019-05-07 02:51 | Inpatient (IN) | payer OTHER ==
[~2019-05-07] VITALS: Ht 165.1 cm; Wt 72.6 kg
[2019-05-07] MEDS ORDERED: MELA3 PO (03:08)
[2019-05-07] MEDS ORDERED: MIRALAX17 GM PO (03:09)
[2019-05-07] MEDS ORDERED: Acetaminophen650 M1 PO (03:12)
[2019-05-07] MEDS ORDERED: Advair Hfa 230-12 GM INH (03:13)
[2019-05-07] MEDS ORDERED: FURO80 PO (03:14)
[2019-05-07] MEDS ORDERED: ALLO100 PO (03:15)
[2019-05-07 03:16] LABS: BASOPHILS ABSOLUTE AUTO 0.02 K/mm3 (0.00-0.23); BASOPHILS PERCENT AUTO 0 % (0-2); EOSINOPHILS PERCENT AUTO 0 % (0-6); Hematocrit 29.7 % (33.0-51.0); Hemoglobin 9.7 g/dL (11.5-16.0); IMMATURE GRAN ABSOLUTE AUTO 0.12 K/mm3 (0.00-0.10); IMMATURE GRAN PERCENT AUTO 1 % (0-1); LYMPHOCYTES PERCENT AUTO 5 % (21-46); MONOCYTES ABSOLUTE AUTO 0.74 K/mm3 (0.16-1.47); MONOCYTES PERCENT AUTO 5 % (4-13); Mean Corpuscular HGB 27.6 pg (26.0-34.0); Mean Corpuscular HGB Conc 32.7 g/dL (31.5-36.5); Mean Corpuscular Volume 85 fL (80-100); Mean Platelet Volume 11.9 fL (9.1-12.4); NEUTROPHILS PERCENT AUTO 89 % (41-73); Platelet Count 418 K/mm3 (150-400); RDW Coefficient Variation 17.2 % (11.7-14.2); RDW Standard Deviation 53.7 fL (35.1-46.3); Red Blood Cell Count 3.51 M/mm3 (3.80-5.20); White Blood Cell Count 14.38 K/mm3 (4.00-11.30)
[2019-05-07] MEDS ORDERED: POTA10T PO (03:16)
[2019-05-07] MEDS ORDERED: METO2.5 PO (03:17)
[2019-05-07] MEDS ORDERED: LEVSOD50 PO (03:17)
[2019-05-07] MEDS ORDERED: OLME5TAB PO (03:20)
[2019-05-07 03:42] LABS: Prothrombin Time Results >90.0 Sec (9.7-11.5)
[2019-05-07 03:43] LABS: International Normalized Ratio No Calc
[2019-05-07 04:00] LABS: Albumin, Blood 1.5 g/dL (3.4-5.0); Albumin/Globulin Ratio 0.3 (0.8-1.8); Bilirubin, Total 0.4 mg/dL (0.1-1.0); Bun/Creatinine Ratio 44.6 (12.0-20.0); Calcium, Blood 5.6 mg/dL (8.5-10.1); Creatinine, Blood 2.51 mg/dL (0.40-1.00); Globulin, Blood 4.4 g/dL (2.2-4.0); Potassium, Blood 3.8 mmol/L (3.5-5.5); Total Protein, Blood 5.9 g/dL (6.4-8.2)
[2019-05-07 04:25] LABS: Calcium, Ionized (POC) 0.62 mmol/L (1.10-1.46); Chloride (POC) 95 mmol/L (98-108); Creatinine (POC) 2.6 mg/dL (0.6-1.0); Glucose (ISTAT POC) 126 mg/dL (70-99); Hemoglobin (POC) 9.9 g/dL (12.0-16.0); Potassium (POC) 3.8 mmol/L (3.5-5.5); Sodium (POC) 135 mmol/L (135-148); Total CO2 (POC) 27 mmol/L (21-32)
--- NOTE | 2019-05-07 06:36 | NUR ---
ADMIT PT ARRIVED TO ICU 15 AT 0600 PCU STATUS. PT TRANSFERED TO ICU BED. PT IS ALERT AND ORIENTED TO SELF AND FOLLOWING DIRECTION. PT FORGETFUL. PT DENIES PAIN OR DISCOMFORT AT THIS TIME. PT ON 2L O2 NC. VITAL SIGNS STABLE, PT HYPERTENSIVE. PT MED PER EMAR WITH HYDRALAZINE. LS DIMINISHED IN BASES. PT WITH SOFT BM WITH MAROON COLORED STOOL AT THIS TIME. NEW ATTENDS PLACED. PT WITH NOTABLE SWELLING AND BRUISING TO RIGHT LOWER EXTREMITY. EXTREMITY MEASURED AND PHOTOS TAKEN, SEE CHART. PT DENIES PAIN TO EXTREMITY. IV'S IN PLACE WITH ALBUMIN INFUSING AT THIS TIME. NO FAMILY AT BEDSIDE. WILL CONTINUE TO MONITOR AND REPORT OFF TO ONCOMING RN.
[2019-05-07 06:48] LABS: Free Thyroxine 1.03 ng/dL (0.70-1.60)
[2019-05-07 06:50] LABS: Thyroid Stimulating Hormone 1.68 uIU/mL (0.360-4.800)
[2019-05-07 07:56] LABS: Hematocrit 26.9 % (33.0-51.0); Hemoglobin 8.6 g/dL (11.5-16.0); Mean Corpuscular HGB 27.2 pg (26.0-34.0); Mean Corpuscular Volume 85 fL (80-100); Mean Platelet Volume 11.5 fL (9.1-12.4); Platelet Count 404 K/mm3 (150-400); RDW Coefficient Variation 17.2 % (11.7-14.2); Red Blood Cell Count 3.16 M/mm3 (3.80-5.20); White Blood Cell Count 13.77 K/mm3 (4.00-11.30)
[2019-05-07 08:12] LABS: International Normalized Ratio 3.59
[2019-05-07 08:13] LABS: Albumin, Blood 2.4 g/dL (3.4-5.0); Albumin/Globulin Ratio 0.6 (0.8-1.8); Bilirubin, Total 0.6 mg/dL (0.1-1.0); Bun/Creatinine Ratio 44.7 (12.0-20.0); Calcium, Blood 6.3 mg/dL (8.5-10.1); Creatinine, Blood 2.35 mg/dL (0.40-1.00); Globulin, Blood 3.8 g/dL (2.2-4.0); Potassium, Blood 3.6 mmol/L (3.5-5.5); Total Protein, Blood 6.2 g/dL (6.4-8.2)
--- NOTE | 2019-05-07 08:17 | NUR ---
BEGINNING OF SHIFT Assumed care at 0700. Bedside report received from HIPOLITO Lopez. Pt on 2 LPM NC. SpO2 100%. Titrated to room air. SpO2 currently 97%. Pt states she does not typically wear O2. Atrial fibrillation per monitor, rate between 105 and 115. Hypertensive. AM meds given. Plan to reassess HR and BP. Bed in lowest position. Call light in reach. Pt eating breakfast at this time.
[2019-05-07 08:21] LABS: Prothrombin Time Results 33.9 Sec (9.7-11.5)
--- NOTE | 2019-05-07 09:45 | NUR ---
DR PAYTON IN TO SEE PT Discussed bowel movements. Provider concerned about acute GI bleed. Dr Chacon consulted by Dr Payton. Verbal orders received from Dr Payton. Telephone orders received from Dr Chacon. Dr Chacon requests this RN notifies him if family in to see pt to discuss potential endoscopy.
--- NOTE | 2019-05-07 10:30 | NUR ---
DR JAMES IN TO SEE PT Family at bedside. This RN inquired about administering vitamin K. New orders given. Plan to administer 2 units FFP and 2 units PRBCs, then recheck H&H and PT/INR.
--- NOTE | 2019-05-07 17:30 | NUR ---
SUMMARY This AM, pt was having maroon bowel movements with clots present. Pt has not had any bowel movements since Dr Chacon in to see pt this AM. VSS. Dr Chacon and Dr Payton updated on pt condition. No new orders at this time. Pt remains on room air. Atrial fibrillation per monitor, rate averaging between 85 and 95. VSS. Pt transferred to PCU 13. Telephone report given to Stefani MCMILLAN. Family notified of transfer.
--- NOTE | 2019-05-07 17:43 | NUR ---
PT TRANSFERRED FROM ICU TO [facility]. REPORT REC'D FROM JOSE MCMILLAN. IV'S PATENT AND PROTONIX INFUSING ON ARRIVAL. NADN AT THIS TIME. BEDPAN PROVIDED REQUESTED. CALL LIGHT IN REACH.
--- NOTE | 2019-05-07 18:14 | NUR ---
DR WRIGHT IN TO SEE PT. BLADDER SCAN DONE = 340CC POST VOID URINE. NEW ORDERS REC'D.
[2019-05-07 18:29] LABS: Hematocrit 27.6 % (33.0-51.0)
[2019-05-07 18:47] LABS: International Normalized Ratio 1.42
[2019-05-07 18:56] LABS: Prothrombin Time Results 14.6 Sec (9.7-11.5)
--- NOTE | 2019-05-07 22:13 | NUR ---
1924: ASSUMED CARE OF PATIENT, PT RESTING QUIETLY. DENIES PAIN, RESP EVEN AND UNLABORED. BED LOW AND LOCKED AND ALARMED. 2044: SHIFT ASSESSMENT COMPLETED, MEDS GIVEN PER EMAR. 2204: PT POC FSBS = 224 NO COVERAGE ORDERED BUT CHECKS ORDERED ACHS. LEFT V/M FOR ON-CALL HOSPITALIST ALSO PATIENT OSOUNDS INCREASINGLY CONGESTED, WHEEZY, DESATURATING TO 76; CALLED RT AND HOSPITALIST
[2019-05-07 22:31] LABS: Hematocrit 24.8 % (33.0-51.0); Hemoglobin 8.4 g/dL (11.5-16.0)
--- NOTE | 2019-05-07 23:02 | NUR ---
2205: SPOKE TO ONCGABO NUNNSITALIST REGARDING POC FSBS = 224 AND NO COVERAGE ORDERED. NO NEW ORDERS AT THIS TIME.
[2019-05-08 04:38] LABS: Hemoglobin 8.2 g/dL (11.5-16.0)
[2019-05-08 04:52] LABS: International Normalized Ratio 1.29; Prothrombin Time Results 13.4 Sec (9.7-11.5)
[2019-05-08 04:53] LABS: Magnesium, Blood 1.2 mg/dL (1.6-2.4)
[2019-05-08 05:47] LABS: Albumin, Blood 1.7 g/dL (3.4-5.0); Anion Gap 7 mmol/L (6-16); Blood Urea Nitrogen 105 mg/dL (8-24); Bun/Creatinine Ratio 47.1 (12.0-20.0); CO2, Blood 30 mmol/L (21-32); Calcium, Blood 5.5 mg/dL (8.5-10.1); Chloride, Blood 102 mmol/L (98-108); Creatinine, Blood 2.23 mg/dL (0.40-1.00); Glomerular Filtration Rate 22 (60-); Glucose, Blood 174 mg/dL (70-99); Phosphorus, Blood 3.6 mg/dL (2.5-4.9); Potassium, Blood 3.6 mmol/L (3.5-5.5); Sodium, Blood 139 mmol/L (136-145)
[2019-05-08 10:12] LABS: Hematocrit 27.4 % (33.0-51.0)
[2019-05-08 10:49] LABS: BASOPHILS ABSOLUTE AUTO 0.01 K/mm3 (0.00-0.23); BASOPHILS PERCENT AUTO 0 % (0-2); EOSINOPHILS ABSOLUTE AUTO 0.05 K/mm3 (0.00-0.68); EOSINOPHILS PERCENT AUTO 1 % (0-6); Hematocrit 27.1 % (33.0-51.0); Hemoglobin 8.9 g/dL (11.5-16.0); IMMATURE GRAN ABSOLUTE AUTO 0.13 K/mm3 (0.00-0.10); IMMATURE GRAN PERCENT AUTO 1 % (0-1); LYMPHOCYTES ABSOLUTE AUTO 0.76 K/mm3 (0.84-5.20); LYMPHOCYTES PERCENT AUTO 7 % (21-46); MONOCYTES ABSOLUTE AUTO 0.95 K/mm3 (0.16-1.47); MONOCYTES PERCENT AUTO 9 % (4-13); Mean Corpuscular HGB Conc 32.8 g/dL (31.5-36.5); Mean Platelet Volume 12.1 fL (9.1-12.4); NEUTROPHILS ABSOLUTE AUTO 9.16 K/mm3 (1.96-9.15); NEUTROPHILS PERCENT AUTO 83 % (41-73); Platelet Count 291 K/mm3 (150-400); RDW Coefficient Variation 17.1 % (11.7-14.2); RDW Standard Deviation 53.9 fL (35.1-46.3); Red Blood Cell Count 3.07 M/mm3 (3.80-5.20); White Blood Cell Count 11.06 K/mm3 (4.00-11.30)
[2019-05-08 10:51] LABS: Mean Corpuscular Volume 88 fL (80-100)
--- NOTE | 2019-05-08 10:55 | NUR ---
AFTER PT USED BEDPAN AND BACK LINE COOK REPORTED FRESH RED BLOOD AND SMALL BLOOD CLOT WHEN WIPING, THIS RN TO ROOM. LEFT WRIST CUFF BP 60/35, PT DENIES DIZZINESS/LIGHTHEADEDNESS , PT SITTING 40 DEGREE IN BED. PT CUFF REPOSITIONED BP 47/34. PT PLACED IN TRENDELENBERG, REPLACED WRIST CUFF WITH LEFT UPPER ARM CUFF, BP 127/49. DR COLEMAN TO ROOM. NEW ORDERS FOR NS AT 75ML/HR. TRANSFER TO ICU. DR COLEMAN NOTIFIED OF CLOUDY, FOUL SMELLING URING FROM BEDPAN. NEW ORDER ENTERED BY EMT/DISPATCHER DIONNA. PT TO ROOM ICU 8, BEDSIDE REPORT GIVEN TO HIPOLITO JUAN. DR JAMES NOTFIFIED.
--- NOTE | 2019-05-08 15:59 | NUR ---
ENDO DECISION: PT CALLS THIS RN INTO THE ROOM AND STATES SHE WANTS TO "GO AHEAD WITH THE PROCEDURE". CALLED DR JAMES TO NOTIFY OF DECISION RECEIVED NEW ORDERS FOR COLON PREP AND REPEAT H&H AT 1800. DR COLEMAN CALLED AND NOTIFIED OF PT DECISION AND CRITICAL LACTIC ACID. DR COLEMAN DOES NOT WANT TO INCREASE FLUIDS AT THIS TIME. ORDER FOR STREIGHT CATH TO GET UA. PT WAS ABLE TO URINATE INDEPENDENTLY ON THE BEDPAN WITHOUT CONTAMINATING WITH STOOL. UPDATED PT ON THE COLON PREP AND PLACED A RECTAL TUBE TO PREVENT THE PT FROM TIRING OUT OR INCREASED SKIN BREAK DOWN. SON CALLED AND UPDATED.
[2019-05-08 16:01] LABS: Source, Urine Clean Catch
[2019-05-08 16:11] LABS: Appearance, Urine Hazy (Clear); Bilirubin, Urine Neg (Neg); Blood, Urine 5+ (Neg); Color, Urine Yellow (P-Yellow); Glucose Qualitative, Urine 3+ (Neg); Ketones, Urine Neg (Neg); Leukocyte Esterase, Urine 3+ (Neg); Nitrite, Urine Pos (Neg); Protein, Urine 4+ (Neg); Specific Gravity, Urine 1.015 (1.003-1.022); Urobilinogen, Urine NORM (Normal)
[2019-05-08 16:23] LABS: Bacteria Many /hpf; Squamous Epithelial Cells Few /hpf (Few); White Blood Cells, Urine TNTC /hpf (0-5)
--- NOTE | 2019-05-08 18:00 | NUR ---
SHIFT SUMMARY: PT ARIVED FROM PCU AND APPEARED TO BE STABLE WITH SBP IN THE 120-130'S. NO SBP'S HAVE BEEN BELOW 90. RECTAL TUBE WAS PLACED PRIOR TO STARTING THE BOWEL PREP FOR ENDO TOMORROW. PT IS HAVING LIQUID RED STOOL, IT APPEARS TO BE HAVING HALF DRAIN IN THE TUBE AND HALF DRAIN AROUND THE TUBE. PT HAS HAD TO HAVE THE GOWN AND SOME OF THE BEDDING CHANGED A FEW TIMES D/T LEAKAGE. PT BP HAS BEEN STABLE AND PT DENIES ANY PAIN, DIZZYNESS, LIGHTHEADEDNESS OR DISCOMFORT. WILL CONTINUE TO MONITOR AND REPORT TO ONCOMING RN.
[2019-05-08 18:29] LABS: Hematocrit 28.2 % (33.0-51.0); Hemoglobin 9.1 g/dL (11.5-16.0)
--- NOTE | 2019-05-08 19:23 | NUR ---
ASSUMED CARE RECEIVED REPORT FROM HIPOLITO SARABIA. PT IS LYING IN BED WITH NO COMPLAINTS. SHE HAS A RECTAL TUBE PATENT AND DRAINING DARK RED BLOOD. SHE HAS PROTONIX INFUSING AT 10ML/HR, AND NS AT 75ML/HR. STABLE VITALS. SHE IS IN AFIB WITH A CONTROLLED RATE. BED IS LOW AND LOCKED. CALL LIGHT WITHIN REACH. SHE IS DRINKING GOLYTELY. SHE IS ORIENTED TO SELF, PLACE, AND SITUATION.
--- NOTE | 2019-05-09 00:48 | NUR ---
CALL FROM RECEIVED CALL FROM DR COLEMAN REGARDING INCREASED BLOOD GLUCOSE DURING THE DAY AND UA RECEIVED. INCREASED INSULIN FROM LOW SLIDING SCALE TO MEDIUM SLIDING SCALE WITH FIRST DOSE NOW, START LANTUS 20 UNITS NOW. GIVE LEVAQUIN FOR UTI WITH FIRST DOSE NOW. BLOOD GLUCOSE 179, 3 UNITS HUMALOG SLIDING SCALE GIVEN AND 20 UNITS LANTUS GIVEN. REPORT GIVEN TO KENRICK MCMILLAN
--- NOTE | 2019-05-09 01:52 | NUR ---
CHARTING TO REFLECT TIME CHANGE
[2019-05-09 05:13] LABS: Hematocrit 24.3 % (33.0-51.0)
[2019-05-09 05:30] LABS: International Normalized Ratio 1.25
[2019-05-09 05:34] LABS: Magnesium, Blood 1.5 mg/dL (1.6-2.4)
[2019-05-09 05:38] LABS: Albumin, Blood 1.6 g/dL (3.4-5.0); Anion Gap 11 mmol/L (6-16); Blood Urea Nitrogen 87 mg/dL (8-24); Bun/Creatinine Ratio 44.8 (12.0-20.0); CO2, Blood 26 mmol/L (21-32); Calcium, Blood 5.3 mg/dL (8.5-10.1); Chloride, Blood 102 mmol/L (98-108); Creatinine, Blood 1.94 mg/dL (0.40-1.00); Glomerular Filtration Rate 26 (60-); Glucose, Blood 84 mg/dL (70-99); Phosphorus, Blood 2.4 mg/dL (2.5-4.9); Potassium, Blood 3.1 mmol/L (3.5-5.5); Sodium, Blood 139 mmol/L (136-145)
--- NOTE | 2019-05-09 07:26 | NUR ---
SHIFT SUMMARY PT WAS ON BOWEL PREP ALL NIGHT, WAS ABLE TO DRINK 4.6L OF IT BEFORE BECOMING NPO AT 0600. SHE HAS A RECTAL TUBE THAT IS DRAINING DARK RED LIQUID STOOL. SHE HAS HAD STABLE VITALS FOR MAJORITY OF NIGHT, SHE HAD A COUPLE SOFT BP'S THAT IMPROVED AFTER A 500cc BOLUS OF NS. SHE IS IN AFIB WITH A CONTROLLED RATE. SHE DENIES PAIN OR DISCOMFORT, ASIDE FROM RECTAL TUBE, AND GOLYTELY. SHE VOIDS CLOUDY, YELLOW URINE. ELECTROLYTES ARE BEING REPLACED (Ca, K, NaPhos, Mg). SHE IS CONGESTED IN THE LUNGS THAT CLEARS WITH COUGHS. HER DILEEP AREA IS REDDENED. PLAN IS TO HAVE BOTH LOWER AND UPPER ENDOSCOPY THIS MORNING. SHE IS ALERT AND ORIENTED TO SELF, SITUATION, SURROUNDINGS; HOWEVER IS QUITE FORGETFUL. SHE MUST BE EXHAUSTED FROM BEING WOKEN UP ALL NIGHT TO DRINK GOLYTELY. BED IS LOW AND LOCKED. CALL LIGHT WITHIN REACH.
[2019-05-09 12:38] LABS: Magnesium, Blood 1.7 mg/dL (1.6-2.4); Phosphorus, Blood 3.1 mg/dL (2.5-4.9); Potassium, Blood 3.3 mmol/L (3.5-5.5)
--- NOTE | 2019-05-09 13:45 | NUR ---
05/09/19 1345 Damion Cesar History, Chart, Medications and Allergies reviewed before start of procedure.MONITOR INTACT WITH CONTINUOUS PULSE OXIMETRY AND INTERMITTENT BP.3-LEAD EKG REVIEWED WITH PHYSICIAN PRIOR TO START OF PROCEDURE.O2 VIA N/C INTACT THROUGHOUT SEDATION/PROCEDURE. Patient confirms NPO status and agrees with scheduled surgery.See Anesthesia record.
--- NOTE | 2019-05-09 15:26 | NUR ---
ASSUMED CARE NOTE REPORT RECEIVED FROM HIPOLITO GIORDANO. PT S/P UPPER AND LOWER ENDOSCOPY. VSS. FAMILY AT BEDSIDE. NO S/SX DISTRESS NOTED. CALL LIGHT IN REACH. WILL CONT TO MONITOR PT.
--- NOTE | 2019-05-09 15:29 | NUR ---
CARE HANDOFF GIVEN TO LULU MCMILLAN. REPORTED PROCEDURE RESULTS AND UPDATED PT AND FAMILY OF CARE CHANGE.
--- NOTE | 2019-05-09 16:52 | NUR ---
UPDATE NOTE PT'S FAMILY WENT HOME FOR THE NIGHT. PT NOW RESTING WITH EYES CLOSED, HOB ELEVATED 30 DEGREES. LIGHTS IN ROOM OFF PER PT REQUEST, TV REMAINS ON LOW. PT DENIES ANY NEEDS AT THIS TIME. CALL LIGHT IN REACH. WILL CONT TO MONITOR PT.
--- NOTE | 2019-05-09 19:11 | NUR ---
REPORT OFF REPORT GIVEN TO HIPOLITO ROSS. CODY TO ASSUME CARE OF PT AT THIS TIME. BEDSIDE ROUNDING DONE. PT ASSISTED OFF BEDPAN. DILEEP CARE AND NEW LINENS. CALL LIGHT IN REACH.
--- NOTE | 2019-05-09 19:39 | NUR ---
PATIENT USING CALL LIGHT APPROPRIATELY. VERBALIZED FEELING TIRED, DUE TO NO SLEEP NIGHT BEFORE AND SCOPES BEING DONE. SLIGHTLY FORGETFUL TO MONTH. ABLE TO ASSIST WITH REPOSITIONING IN BED FOR BED DYKES, INCONT OF URINE ATTENDS PLACED. SMEAR OF BROWN STOOL WHEN ON BED DYKES.
[2019-05-09] MEDS ORDERED: ALBU90OI INH (21:53)
[2019-05-09] MEDS ORDERED: METPRE4 PO (21:55)
[2019-05-09] MEDS ORDERED: MAGCHL64ER PO (21:56)
[2019-05-10 03:12] LABS: Hematocrit 25.3 % (33.0-51.0); Hemoglobin 8.1 g/dL (11.5-16.0)
[2019-05-10 03:26] LABS: International Normalized Ratio 1.3; Prothrombin Time Results 13.5 Sec (9.7-11.5)
[2019-05-10 03:27] LABS: Magnesium, Blood 1.6 mg/dL (1.6-2.4)
[2019-05-10 03:44] LABS: Albumin, Blood 1.4 g/dL (3.4-5.0); Anion Gap 8 mmol/L (6-16); Blood Urea Nitrogen 68 mg/dL (8-24); CO2, Blood 29 mmol/L (21-32); Calcium, Blood 5.7 mg/dL (8.5-10.1); Chloride, Blood 104 mmol/L (98-108); Glomerular Filtration Rate 25 (60-); Glucose, Blood 185 mg/dL (70-99); Phosphorus, Blood 2.7 mg/dL (2.5-4.9); Potassium, Blood 3.9 mmol/L (3.5-5.5); Sodium, Blood 141 mmol/L (136-145)
--- NOTE | 2019-05-10 06:28 | NUR ---
SUMMARY PATIENT SLEEPING OFF AND ON T/O THE NIGHT. WHILE SLEEPING BIOX DROPPING DOWN TO 88-89% SEVERAL TIMES, OXYGEN PLACED 2L/NC WITH OXYGEN ON MAINTAINING BIOX ABOVE 90% BIOX 97% WHEN AWAKE. PATIENT ASSISTING WITH REPOSITIONING IN BED. ON BED DYKES SEVERAL TIMES, VOIDING WITHOUT DIFFICULTY. NO BM T/O THE NIGHT. PATIENT CECILIO PO MEDICATIONS WITHOUT DIFFICULTY. USING CALL LIGHT APPROPRIATELY. BP REMAINS LABILE. POOR COORDINATION TO RIGHT HAND, PATIENT VERBALIZED HAS DIFFICULTY WITH THAT HAND AT HOME ALSO.
--- NOTE | 2019-05-10 07:28 | NUR ---
ASSUMED CARE: PT RESTING QUIETLY IN BED. 2L O2 VIA NC. AFIB ON TELE IN 60S AT THIS TIME. DENIES NEEDS OR CONCERNS.
--- NOTE | 2019-05-10 14:37 | NUR ---
PT HAD 8-10 SECOND RUN THAT APPEARED VTACH. CALL TO DR FRIAS WHO BELIEVES AFIB WITH RVR WITH ABERRANCY. EKG COMPLETED WHICH REVIEWED. LAB IN ROOM AT THIS TIME COLLECTING LEVELS. ORDER FOR MAG RIDER. CHANGE STATUS BACK TO PCU. ALMOND PASTE MOLDER AWARE.
[2019-05-10 14:56] LABS: Hematocrit 24.8 % (33.0-51.0)
[2019-05-10 15:16] LABS: Bun/Creatinine Ratio 28.7 (12.0-20.0); Calcium, Blood 6.3 mg/dL (8.5-10.1); Creatinine, Blood 2.44 mg/dL (0.40-1.00); Potassium, Blood 4.3 mmol/L (3.5-5.5)
--- NOTE | 2019-05-10 16:09 | NUR ---
Spiritual Care inital note: Mrs. Saldana immediately told me that she feels God has not forgiven her for things in her past. She responded well to spiritual direction and family life counselor. Prayer also provided. She beleives she is getting better, although I am not sure she understands her dx. I will remain available.
--- NOTE | 2019-05-10 19:20 | NUR ---
ASSUME CARE REPORT RECIEVED FROM [facility] RN. MONITOR INTACT SHOWING A FIB HEART RATE 70'S-80'S LUNG SOUNDS CLEAR RESPIRATIONS REGULAR AND EASY WITH O2 IN PLACE AT 2L/MIN PER NASAL CANNULA. SPO2 97-98% ABDOMEN SOFT WITH BOWEL SOUNDS FOUR QUADS PULL UP IN PLACE SECONDARY TO INCONTINENCE. REQUEST BEDPSN VOIDS PALE NICOLE URINE SKIN FRAGILE WITH ECCYMOTIC AREAS SCATTERED. TRANSFUSION COMPLETED AT 2019. WITHOUT INCIDENT. ALMEIDA WELL IN BED NO EDEMA NOTED PEDAL PULSES PRESENT. CONTINUE TO MONITOR AND REPORT CHANGE IN PATIENT CONDITION
--- NOTE | 2019-05-10 19:47 | NUR ---
SHIFT SUMMARY: PT RESTING QUIETLY, 2L O2 IN PLACE. NO FURTHER EVENTS OF ECTOPY SINCE PRIOR. 1 UNIT OF BLOOD RUNNING AT THIS TIME. MAG RIDER COMPLETE. FAMILY GONE FOR THE DAY BUT WERE AT BEDSIDE MAJORITY OF DAY. NO FURTHER NEEDS OR CONCERNS NOTED AT THIS TIME.
[2019-05-11 03:32] LABS: Hematocrit 28.5 % (33.0-51.0); Hemoglobin 9.3 g/dL (11.5-16.0)
[2019-05-11 03:47] LABS: International Normalized Ratio 1.25
[2019-05-11 03:52] LABS: Albumin, Blood 1.6 g/dL (3.4-5.0); Anion Gap 7 mmol/L (6-16); Blood Urea Nitrogen 65 mg/dL (8-24); Bun/Creatinine Ratio 27.3 (12.0-20.0); CO2, Blood 29 mmol/L (21-32); Calcium, Blood 6.6 mg/dL (8.5-10.1); Chloride, Blood 103 mmol/L (98-108); Creatinine, Blood 2.38 mg/dL (0.40-1.00); Glomerular Filtration Rate 20 (60-); Glucose, Blood 196 mg/dL (70-99); Magnesium, Blood 1.7 mg/dL (1.6-2.4); Phosphorus, Blood 2.6 mg/dL (2.5-4.9); Potassium, Blood 4.1 mmol/L (3.5-5.5); Sodium, Blood 139 mmol/L (136-145)
--- NOTE | 2019-05-11 06:07 | NUR ---
SHIFT SUMMURY RESTS QUIETLY WHEN UNDISTURBED. MONITOR INTACT SHOWING A FIB HEART RATE 80'S. LUNG SOUNDS CLEAR UPPER LOBES WITH DECREASED SOUNDS IN THE BASES. REPIRATIONS REGULAR AND EASY AT REST. ABDOMEN SOFT WITH BOWEL SOUNDS FOUR QUADS. ATTENDS IN PLACE SECONDARY TO INCONTINENCE. ASSIST WITH REPOSITIONING REPOSITIONS SELF AT TIMES. CONTINUE TO MONITOR AND REPORT CHANGE IN PATIENT CONDITION
--- NOTE | 2019-05-11 08:00 | NUR ---
INITIAL ASSESSMENT PATIENT ALERT AND ORIENTED X 4, AFEBRILE. PATIENT DENIES PAIN. PATIENT ABLE TO MOVE ALL EXTREMITIES. LUNGS CLEAR IN UPPER LOBES AND DIMINISHED IN LOWER LOBES. PATIENT SATTING 90% AND GREATER ON 2 L NC. PATIENT HAS OCCASIONAL, MOIST, NONPRODUCTIVE COUGH. PATIENT IN A.FIB, HR IN THE 80S. BP STABLE. TRACE EDEMA NOTED TO BLES. SCDS IN PLACE. GI WNL- ATTENDS IN PLACE. PATIENT TOLERATING BREAKFAST WELL. WNL. DILEEP AREA AND COCCYX REDDENED. DILEEP AREA EXCORIATED. BRUISES NOTED THROUGHOUT BODY. IV FLUSHED AND SALINE LOCKED. BED LOW, CALL LIGHT IN REACH, FAMILY AT BEDSIDE. WILL CONTINUE TO MONITOR PATIENT FREQUENTLY THROUGHOUT SHIFT.
--- NOTE | 2019-05-11 11:37 | NUR ---
PATIENT SITTING IN CHAIR QUIETLY, WATCHING TV UPON ENTERING ROOM. PATIENT HAS NO COMPLAINTS. PATIENT AFEBRILE. VSS. PATIENT SATTING 90% AND GREATER ON RA. HR 60S TO 70S. BP SOFT BUT STABLE. NO OTHER ACUTE CHANGES TO NOTE ON AT THIS TIME. WILL CONTINUE TO MONITOR.
--- NOTE | 2019-05-11 16:00 | NUR ---
PATIENT RESTING QUIETLY IN CHAIR. NO COMPLAINTS. AFEBRILE. VSS. PATIENT REMAINS SATTING 90% AND GREATER ON RA. PATIENT REMAINS IN A.FIB, HR IN THE 70S. BP STABLE. NO OTHER ACUTE CHANGES TO NOTE ON AT THIS TIME. WILL CONTINUE TO MONITOR.
--- NOTE | 2019-05-11 17:26 | NUR ---
SHIFT SUMMARY PATIENT REMAINED ALERT AND ORIENTED X 4. PATIENT HAD A COUPLE NAPS DURING DAY SHIFT TODAY. PATIENT HAD NO COMPLAINTS OF PAIN. PATIENT HAS SLIGHT R SIDED DEFICIT FROM HX OF CVA. PT AND OT WORKED WITH PATIENT TODAY. PATIENT IS GETTING AROUND WITH WALKER AND 1 PERSON ASSIST. LUNGS HAVE REMAINED CLEAR IN UPPER LOBES AND DIMINISHED IN LOWER LOBES. PATIENT STARTED SHIFT ON 2 L NC BUT DECREASED SHORTLY AFTER TO RA; PATIENT HAS REMAINED SATTING 90% AND GREATER. PATIENT HAS REMAINED HAVING OCCASIONAL, MOIST, NONPRODUCTIVE COUGH. PATIENT REMAINED IN A.FIB, HR 60S TO 80S. BP HAS REMAINED STABLE. PATIENT DID NOT HAVE BM THIS SHIFT. MIRALAX GIVEN. PATIENT REMAINS TOLERATING DIET WELL AND HAS GOOD APPETITE. WNL. NO CHANGE TO SKIN. PATIENT HAD COMPLETE BED BATH THIS SHIFT. PATIENT HAS NO COMPLAINTS AT THIS TIME AND IS EATING DINNER. CALL LIGHT IN REACH. WILL CONTINUE TO MONITOR FREQUENTLY UNTIL REPORT GIVEN TO ONCOMING LENS ENGRAVER NURSE SHORTLY.
--- NOTE | 2019-05-11 20:00 | NUR ---
ASSUMED CARE OF PT AT 1915. REPORT RECEIVED. PT PRESENTS IN BED. ALERT AND ORIENTED. PLEASANT AND COOPERATIVE WITH CARE AND ASSESSMENT. PT IN NO APPARENT DISTRESS. NO COMPLAINTS OF PAIN. NO S/S BLEEDING. WILL REVIEW CHART AND PLAN OF CARE FOR THIS PT.
--- NOTE | 2019-05-12 | NUR ---
PT GOOD ABOUT USING CALL LIGHT SYSTEM TO CALL FOR ASSIST WITH BEDPAN. VOIDS Q.S. NO BOWEL MOVEMENTS THIS NIGHT. NO COMPLAINTS OF PAIN AT THIS TIME. DID EARLIER HAVE COMPLAINT OF HER RIGHT LEG HURTING NEAR HER FOOT. WHEN ASSESSING, PT'S SOCK WAS A LITTLE TO TIGHT. REMOVED SOCKS AND SHE STATES THAT THIS MAKES HER LEG FEEL BETTER. DID DO CALF CIRCUMFRANCES. RIGHT LEG 37.5 CHM, AND RIGHT WAS 35.5 CM.
[2019-05-12 03:37] LABS: Hematocrit 27.6 % (33.0-51.0)
[2019-05-12 03:51] LABS: International Normalized Ratio 1.19; Prothrombin Time Results 12.4 Sec (9.7-11.5)
[2019-05-12 03:54] LABS: Albumin, Blood 1.6 g/dL (3.4-5.0); Anion Gap 6 mmol/L (6-16); Blood Urea Nitrogen 68 mg/dL (8-24); Bun/Creatinine Ratio 32.7 (12.0-20.0); CO2, Blood 29 mmol/L (21-32); Calcium, Blood 7.7 mg/dL (8.5-10.1); Chloride, Blood 102 mmol/L (98-108); Creatinine, Blood 2.08 mg/dL (0.40-1.00); Glomerular Filtration Rate 24 (60-); Glucose, Blood 236 mg/dL (70-99); Magnesium, Blood 1.6 mg/dL (1.6-2.4); Phosphorus, Blood 2.8 mg/dL (2.5-4.9); Potassium, Blood 4.3 mmol/L (3.5-5.5); Sodium, Blood 137 mmol/L (136-145)
--- NOTE | 2019-05-12 06:49 | NUR ---
PT HAS BEEN ABLE TO REST THIS NIGHT. TOLERATES Q 2 HOUR TURNS. NO S/S BLEEDING TO NOTE. HAS HAD SOME ELEVATED BLOOD PRESSURES. MEDICATED WITH HYDRALAZINE WITH NOMINAL RESULTS. WILL CONTINUE TO MONITOR PT, AND WILL REPORT OFF TO ONCOMING RN.
--- NOTE | 2019-05-12 08:00 | NUR ---
INITIAL ASSESMENT PT RESTING IN BED, FOLLOWS ALL COMMANDS AND DENIES PAIN. ALERT/ORIENT X4 AFEBRILE, VSS, PALP PULSES T/O WITH TRACE GENERALIZED EDEMA. RA WITH CLEAR AND DIM LUNG SOUNDS BILAT. WEAK NON PRODUCTIVE WET COUGH, NO S/S OF RESP DISTRESS OR SOB. CONTINENT WITH BRIEFS CHANGED PRN. NO BM. ABD OBESE ROUND SOFT AND NON TENDER WITH BTS T/O. SKIN INTACT. WILL CONT TO MONITOR
--- NOTE | 2019-05-12 14:11 | NUR ---
PT TRANSFER REPORT GIVEN TO [facility] RN AND PT TRANSFERED VIA TRANSPORT W/C AND WITH ALL BELONGINGS.
== END 2019-05-12 14:00 | DRG 378 ==
LOC: ER 02:51 → PCU 02:52 → ICUW 05:46 → PCU 17:39 → ICUE 05-08 10:50
PROVIDERS: Emergency Medicine; Family Medicine; Internal Medicine; Internal Medicine Gastroenterology; Internal Medicine Nephrology; ADMIT Internal Medicine
PROC: 0W3P8ZZ Control Bleeding in Gastrointestinal Tract, Via Natural or Artificial Opening Endoscopic (ICD-10-PCS; principal; 2019-05-09 14:00)
PROC: 0DJ08ZZ Inspection of Upper Intestinal Tract, Via Natural or Artificial Opening Endoscopic (ICD-10-PCS; 2019-05-09 14:00)
PROC: 30233N1 Transfusion of Nonautologous Red Blood Cells into Peripheral Vein, Percutaneous Approach (ICD-10-PCS; 2019-05-11)
DX: K57.31 Diverticulosis of large intestine without perforation or abscess with bleeding (principal); D62 Acute posthemorrhagic anemia; N17.9 Acute kidney failure, unspecified; N25.81 Secondary hyperparathyroidism of renal origin; E87.1 Hypo-osmolality and hyponatremia; E78.5 Hyperlipidemia, unspecified; E03.9 Hypothyroidism, unspecified; E11.22 Type 2 diabetes mellitus with diabetic chronic kidney disease; I12.9 Hypertensive chronic kidney disease with stage 1 through stage 4 chronic kidney disease, or unspecified chronic kidney disease; N18.3 Chronic kidney disease, stage 3 (moderate); Z79.4 Long term (current) use of insulin; J44.9 Chronic obstructive pulmonary disease, unspecified; J45.909 Unspecified asthma, uncomplicated; E83.51 Hypocalcemia; K21.9 Gastro-esophageal reflux disease without esophagitis; Z95.1 Presence of aortocoronary bypass graft; Z86.73 Personal history of transient ischemic attack (TIA), and cerebral infarction without residual deficits
CPT/HCPCS: 36415; 36430; 76770; 80047; 80048; 80053; 80069; 81001; 82306; 82330; 82947; 83605; 83735; 83970; 84100; 84132; 84439; 84443; 85014; 85018; 85025; 85027; 85610; 86850; 86900; 86901; 86920; 86923; 87040; 87077; 87086; 87186; 93005; 93010; 94640; 94760; 96365; 96366; 96367; 96375; 96376; 97112; 97162; 97166; 97530; 97535; 99285-25; C9113; G0378; J0171; J0360; J0610; J0881; J1956; J2405; J2704; J2916; J3430; J3475; J3480; J7030; J7050; J7060; J7120; P9016; P9046; P9059

== ENCOUNTER 2019-05-28 20:55 | Inpatient (IN) | payer OTHER ==
[~2019-05-28] VITALS: Ht 162.6 cm; Wt 66.5 kg
[~2019-05-28 20:55] MED LIST changes: +ALBU90OI INH; +ALLO100 PO; +Acetaminophen650 M1 PO; +FURO80 PO; +MELA3 PO; +METO2.5 PO; +METPRE4 PO; +MIRALAX17 GM PO; +POTA10T PO
[2019-05-28 21:17] LABS: BASOPHILS ABSOLUTE AUTO 0.04 K/mm3 (0.00-0.23); BASOPHILS PERCENT AUTO 0 % (0-2); EOSINOPHILS ABSOLUTE AUTO 0.33 K/mm3 (0.00-0.68); EOSINOPHILS PERCENT AUTO 3 % (0-6); Hematocrit 36.1 % (33.0-51.0); Hemoglobin 11.1 g/dL (11.5-16.0); IMMATURE GRAN ABSOLUTE AUTO 0.16 K/mm3 (0.00-0.10); IMMATURE GRAN PERCENT AUTO 2 % (0-1); LYMPHOCYTES ABSOLUTE AUTO 1.42 K/mm3 (0.84-5.20); LYMPHOCYTES PERCENT AUTO 14 % (21-46); MONOCYTES ABSOLUTE AUTO 0.93 K/mm3 (0.16-1.47); MONOCYTES PERCENT AUTO 9 % (4-13); Mean Corpuscular HGB 28.8 pg (26.0-34.0); Mean Corpuscular HGB Conc 30.7 g/dL (31.5-36.5); Mean Corpuscular Volume 94 fL (80-100); Mean Platelet Volume 10.5 fL (9.1-12.4); NEUTROPHILS ABSOLUTE AUTO 7.46 K/mm3 (1.96-9.15); NEUTROPHILS PERCENT AUTO 72 % (41-73); Platelet Count 486 K/mm3 (150-400); RDW Coefficient Variation 16.9 % (11.7-14.2); RDW Standard Deviation 56.6 fL (35.1-46.3); Red Blood Cell Count 3.86 M/mm3 (3.80-5.20); White Blood Cell Count 10.34 K/mm3 (4.00-11.30)
[2019-05-28 21:32] LABS: International Normalized Ratio 1.09; Prothrombin Time Results 11.5 Sec (9.7-11.5)
[2019-05-28 21:35] LABS: Albumin/Globulin Ratio 0.5 (0.8-1.8); Bilirubin, Total 0.4 mg/dL (0.1-1.0); Bun/Creatinine Ratio 19.1 (12.0-20.0); Calcium, Blood 8.3 mg/dL (8.5-10.1); Creatinine, Blood 2.36 mg/dL (0.40-1.00); Globulin, Blood 4.3 g/dL (2.2-4.0); Potassium, Blood 3.7 mmol/L (3.5-5.5); Total Protein, Blood 6.3 g/dL (6.4-8.2)
[2019-05-28] MEDS ORDERED: COLCHICINE0.6 MG PO (21:52)
[2019-05-28] MEDS ORDERED: FERSU300 PO (21:53)
[2019-05-28] MEDS ORDERED: Isosorbide Mono30 MG PO (21:55)
[2019-05-28] MEDS ORDERED: POTA10T PO (21:56)
[2019-05-28] MEDS ORDERED: LEVFLO500 PO (21:57)
[2019-05-28] MEDS ORDERED: Bumetanide2 MG PO (21:59)
[2019-05-28] MEDS ORDERED: MUCUS ER600 M1 PO (22:01)
[2019-05-28] MEDS ORDERED: METPRE4 PO (22:02)
[2019-05-28] MEDS ORDERED: CALC.25 PO (22:03)
[2019-05-28] MEDS ORDERED: Humalog100 UNIT/1 SC (22:06)
[2019-05-28] MEDS ORDERED: NOVOLOG FL100 UNIT/1 (22:07)
[2019-05-29] MEDS ORDERED: POTA10T PO (01:43)
[2019-05-29] MEDS ORDERED: OMEPRAZOLE20 MG PO (01:49)
[2019-05-29] MEDS ORDERED: Vitamin D2000 UNIT PR (01:56)
--- NOTE | 2019-05-29 02:00 | NUR ---
PT TO ICU FROM ED @ 0040, PT ALERT AND ORIENTED x2 TO SELF AND LOCATION, PT ON 2L O2 PER NC, MONITOR SHOWS AFIB WITH FEW PVC'S RATE 70'S, SYSTOLIC BP 140'S. PT COMPLAINS OF CHRONIC PAIN IN BLE. GENERAL EDEMA T/O NOTED, SKIN FRAGILE WITH BANDAGES TO R ARM. RED AREA TO SACRAL REGION, SKIN IN TACT. OVERFLOW INCONTINENCE, ATTENDS IN PLACE, PT VOCALIZES NEED TO URINATE. NO SEIZURE ACTIVITY NOTED AT THIS TIME.
[2019-05-29] MEDS ORDERED: FLUTICASONE-SA1 EAC2 INH (02:24)
[2019-05-29] MEDS ORDERED: TUMS500 MG PO (02:30)
[2019-05-29] MEDS ORDERED: TRAM50 PO (03:03)
[2019-05-29] MEDS ORDERED: INSULANPEN SC (03:06)
[2019-05-29 03:54] LABS: Bun/Creatinine Ratio 19.3 (12.0-20.0); Calcium, Blood 7.9 mg/dL (8.5-10.1); Creatinine, Blood 2.38 mg/dL (0.40-1.00)
--- NOTE | 2019-05-29 06:16 | NUR ---
SHIFT SUMMARY PT SLEPT THROUGH MOST OF NIGHT, WAKES UP AND VERBALIZES NEEDS, ANSWERS QUESTIONS APPROPRIATELY. VSS, PT PLACED ON RA @ APPROX 0400 AND HAS MAINTAINED O2 SATURATIONS ABOVE 90%, MONITOR SHOWS AFIB WITH SOME PVC'S AND RATE 70'S. PT REQUIRES MODERATE ASSISTANCE WITH REPOSITIONING AND ASSISTANCE TO BEDPAN TO VOID. NO SEIZURE ACTIVITY NOTED T/O SHIFT.
--- NOTE | 2019-05-29 07:18 | NUR ---
ASSUMED CARE REPORT FROM HIPOLITO GARCIA. PATIENT IS ALERT, DENIES PAIN. EDEMA BILAT LE. PCU OBS STATUS.
--- NOTE | 2019-05-29 09:53 | NUR ---
PATIENT SAYS SHE IS NOT HUNGRY. REPORTS SHE WILL BE MOVING TO [place] TO LIVE WITH HER SON
--- NOTE | 2019-05-29 11:21 | NUR ---
MD VISIT DR. PALMER IN
--- NOTE | 2019-05-29 11:29 | NUR ---
DR. PALMER CALLED DR. Enrique FRIAS TO ADVISE PATIENT IS EFM PATIENT
--- NOTE | 2019-05-29 11:54 | NUR ---
MD VISIT DR. FRIAS IN
--- NOTE | 2019-05-29 15:19 | NUR ---
REPORT GIVEN TO HIPOLITO MEDRANO. PATIENT MOVING TO 349.
--- NOTE | 2019-05-29 16:27 | NUR ---
PATIENT HAD BM IN BEDPAN. MEPILEX PLACED ON COCCYX FOR REDNESS. ORAL CARE DONE. FRESH ATTENDS PLACED. TAKEN IN BED BY MAI MCKENZIE RN CHARGE TO [id number]
--- NOTE | 2019-05-29 17:11 | NUR ---
PT ARRIVED TO THE MEDICAL FLOOR FROM THE ICU A/OX3, PLEASANT AND COOPERATIVE, THE PT WAS ORIENTED TO THE ROOM MLAYOUT AND CALL SYSTEM, REPORT WAS TAKEN FROM CLINICAL SOCIAL WORKER JOSIANE, I AGREE WITH HER ASSESSMENT, THE PT IS BREATHING EASILY AT THIS TIME ON RA, THE PT IS UP AT THIS TIME ON THE SIDE OF THE BED FOR DINNER, CALL LIGHT IN REACH WILL CONTINUE TO MONITOR AND ASSESS FOR CHANGES
--- NOTE | 2019-05-29 23:03 | NUR ---
BEGINNING SHIFT SUMMARY ASSUMED CARE OF PT AT 1900.PT WAS LYING IN BED ON HER SIDE, SEIZURE PADS INPLACE. PT IS ALERT AND ORIENTED BUT CONFUSED AT TIMES, FOLLOWS COMMANDS AND STATES SHE IS FEELING "FINE". HEART SOUNDS REGULAR, PERIPHERAL PULSES STRONG, R LEG EDEMA AND REDNESS, PT STATES IT WAS NORMAL, IV IN R FOREARM INFUSING NS WITH 20 OF K @ 75ML/HR. LUNG SOUNDS CLEAR, DENIES SOB/DYSPNEA. BOWEL TONES HYPERACTIVE. PT TRANSFERS TO THE BEDSIDE COMMODE WITH 1 PERSON ASSIST. PT HAS AN EXCORIATED AREA ON HER COCCYX, WHICH IS BLANCHABLE, NEW MEPALEX PAD PUT ON. PT IS CURRENTLY SLEEPING. CALL LIGHT IN REACH, BED IN LOWEST POSITION, WILL CONTINUE TO MONITOR.
[2019-05-30 04:46] LABS: BASOPHILS ABSOLUTE AUTO 0.04 K/mm3 (0.00-0.23); BASOPHILS PERCENT AUTO 0 % (0-2); EOSINOPHILS ABSOLUTE AUTO 0.31 K/mm3 (0.00-0.68); EOSINOPHILS PERCENT AUTO 3 % (0-6); Hematocrit 34.6 % (33.0-51.0); Hemoglobin 10.7 g/dL (11.5-16.0); IMMATURE GRAN ABSOLUTE AUTO 0.11 K/mm3 (0.00-0.10); IMMATURE GRAN PERCENT AUTO 1 % (0-1); LYMPHOCYTES ABSOLUTE AUTO 1.55 K/mm3 (0.84-5.20); LYMPHOCYTES PERCENT AUTO 17 % (21-46); MONOCYTES ABSOLUTE AUTO 1.05 K/mm3 (0.16-1.47); MONOCYTES PERCENT AUTO 12 % (4-13); Mean Corpuscular HGB 28.5 pg (26.0-34.0); Mean Corpuscular HGB Conc 30.9 g/dL (31.5-36.5); Mean Corpuscular Volume 92 fL (80-100); Mean Platelet Volume 10.7 fL (9.1-12.4); NEUTROPHILS ABSOLUTE AUTO 6.11 K/mm3 (1.96-9.15); NEUTROPHILS PERCENT AUTO 67 % (41-73); Platelet Count 432 K/mm3 (150-400); RDW Coefficient Variation 17.2 % (11.7-14.2); RDW Standard Deviation 57.3 fL (35.1-46.3); Red Blood Cell Count 3.75 M/mm3 (3.80-5.20); White Blood Cell Count 9.17 K/mm3 (4.00-11.30)
--- NOTE | 2019-05-30 05:04 | NUR ---
END SHIFT SUMMARY NO ACUTE CHANGES NOTED THROUGHOUT THE SHIFT. PT REPEATIVELY AWOKE AND TRIED TO GET OUT OF BED TO THE COMMODE WITHOUT CALLING. PT WAS REORIENTED AND REMIDED TO CALL. CALL LIGHT IN REACH, BED IN LOWEST POSITION, BED ALARM ON, WILL CONTINUE TO MONITOR UNTIL DAYSHIFT NURSE ARRIVES.
[2019-05-30 05:09] LABS: Albumin, Blood 1.9 g/dL (3.4-5.0); Albumin/Globulin Ratio 0.5 (0.8-1.8); Bilirubin, Total 0.7 mg/dL (0.1-1.0); Bun/Creatinine Ratio 19.2 (12.0-20.0); Calcium, Blood 7.6 mg/dL (8.5-10.1); Creatinine, Blood 2.13 mg/dL (0.40-1.00); Globulin, Blood 3.7 g/dL (2.2-4.0); Magnesium, Blood 1.3 mg/dL (1.6-2.4); Potassium, Blood 3.8 mmol/L (3.5-5.5); Total Protein, Blood 5.6 g/dL (6.4-8.2)
--- NOTE | 2019-05-30 08:46 | NUR ---
PATIENT WAS OFFERED A SHOWER AND SHE REFUSED. WILL TRY OFFERING AGAIN LATER. RN NOTIFIED.
--- NOTE | 2019-05-30 15:52 | NUR ---
PT IS A/OX3, PLEASANT AND COOPERATIVE, THE PT IS UP TO THE BSC WITH MINIMAL ASSISTANCE, MULTIPLE TIMES T/O THE DAY, THE PT SITS UP ON THE SIDE OF THE BED FOR MEALS, THE PT HAS A GOOD APPETITE, THE PT APPEARS TO BE BREATHING EASILY ON RA AT THIS TIME, THE PT HAS VISITORS AT THE BEDSIDE AT THIS TIME, PLAN IS FOR POSSIBLE DISCHARGE BACK TO [facility], CALL [facility] IN [place]
--- NOTE | 2019-05-30 22:21 | NUR ---
BEGINNING SHIFT SUMMARY ASSUMED CARE OF PT AT 1900. PT WAS LYING IN BED WATCHING TV. PT IS ALERT TO SELF AND IS ABLE TO FOLLOW DIRECTIONS. HEART SOUNDS IRREGULAR, PERIPHERAL PULSES STRONG, IV IN L WRIST; NO REDNESS OR PAIN, NONPITTING EDEMA IN HER R LEG, PT STATES HER LEGS FEEL ALOT BETTER TODAY. LUNG SOUNDS CLEAR, DENIES SOB. BOWEL TONES HYPERACTIVE. PT IS CURRENTLY SLEEPING IN BED. CALL LIGHT IN REACH, BED IN LOWEST POSTION, BED ALARM ON, WILL CONTINUE TO MONITOR.
--- NOTE | 2019-05-31 05:33 | NUR ---
END SHIFT SUMMARY NO ACUTE CHANGES NOTED THROUGHOUT THE SHIFT. PT IS SLEEPING SOUNDLY. CALL LIGHT IN REACH, BED IN LOWEST POSITION, WILL CONTINUE TO MONITOR UNTIL DAYSHIFT NURSE ARRIVES.
[2019-05-31] MEDS ORDERED: LEVE500 PO (13:03)
[2019-05-31] MEDS ORDERED: MAGNESIUM OXID500 MG PO (13:04)
--- NOTE | 2019-05-31 16:39 | NUR ---
Spiritual Care inital note: Chantel was alone in room, awake, and lucid. She appears frail. 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 That said, she is very afraid of dying. We spoke at length about this, and she responded well to spiritual middle school counselor. She became tearful during prayer and opened up to me about things that are happening this week. On Friday, her son is coming from [place] to take her to be nearer to him. This coming weekend they will go through Chantel's home, take very little, and let go of the rest. Chantel admits this is a big change and she is feeling some sorrow about letting go of her home and its memories. Provided bereavement middle school counselor to good effect. We had an easy rapport. I will remain available.
--- NOTE | 2019-05-31 17:30 | NUR ---
DRESSED IN PAPER PANTS AND TOP AWAITING TRANSPORT.
--- NOTE | 2019-05-31 17:44 | NUR ---
PT TRANSFERED TO [facility] AT 1740 VIA WHEEL CHAIR. PACKET SENT WITH ETHOLOGIST. SON NOTIFIED AT 1704 OF TRANSFER TODAY. CALLED REPORT TO [facility] AT 1655. PT AOX3 WITH CONFUSION. PT VERY PLEASANT AND IS A ONE PERSON WITH GAIT BELT AND WALKER. PT WAS ABLE TO WORK WITH OT AND PHYSICAL THERAPY TODAY. PT VERY HAPPY TO BE GOING BACK TO [facility] PER PT.
== END 2019-05-31 17:40 | DRG 101 ==
LOC: ER 20:55 → ICUE 20:56 → ICUW 20:56 → ICUE 05-29 00:40 → MEDS 05-29 16:25
PROVIDERS: Emergency Medicine; Family Medicine; ADMIT Hospitalist
DX: G40.909 Epilepsy, unspecified, not intractable, without status epilepticus (principal); N18.4 Chronic kidney disease, stage 4 (severe); I69.351 Hemiplegia and hemiparesis following cerebral infarction affecting right dominant side; I48.20 Chronic atrial fibrillation, unspecified; Z79.82 Long term (current) use of aspirin; K21.9 Gastro-esophageal reflux disease without esophagitis; J44.9 Chronic obstructive pulmonary disease, unspecified; I12.9 Hypertensive chronic kidney disease with stage 1 through stage 4 chronic kidney disease, or unspecified chronic kidney disease; E11.22 Type 2 diabetes mellitus with diabetic chronic kidney disease; E11.40 Type 2 diabetes mellitus with diabetic neuropathy, unspecified; E03.9 Hypothyroidism, unspecified; Z95.1 Presence of aortocoronary bypass graft; Z79.4 Long term (current) use of insulin; H55.00 Unspecified nystagmus; E11.65 Type 2 diabetes mellitus with hyperglycemia; Z66 Do not resuscitate; M81.0 Age-related osteoporosis without current pathological fracture; R79.0 Abnormal level of blood mineral
CPT/HCPCS: 36415; 70450; 80048; 80053; 82550; 82947; 83735; 85025; 85610; 85730; 90686; 93005; 93010; 96361; 96372; 96374; 96376; 97161; 97166; 97530; 97535; 99285-25; G0378; J1644; J1953; J3480; J7030